=== PATIENT | female | born 1955 | race Caucasian/White ===

== ENCOUNTER 2022-04-30 21:06 | Emergency (ER) | payer MEDICARE, OTHER, SELFPAY ==
[2022-04-30 21:13] VITALS: BP 169/94; PULSE 100; RESP 20; TEMP 36; O2SAT 96; BMI 25.8
[2022-04-30 21:26] VITALS: O2SAT 100
--- NOTE | 2022-04-30 21:29 | ED_ITS ---
HPI - General Adult General Time Seen by Provider: 21:29 <David Mahajan MD - Last Filed: 04/30/22 21:32> Date Seen: 04/30/22 <David Mahajan MD - Last Filed: 04/30/22 21:32> Chief complaint: Unspecified Complaint, Adult <David Mahajan MD - Last Filed: 04/30/22 21:32> Stated complaint: Took Wellbutrin (900 mg) thought it ibuprofen <David Mahajan MD - Last Filed: 04/30/22 21:32> Time Seen by Provider: 04/30/22 21:11 <David Mahajan MD - Last Filed: 04/30/22 21:32> Source: patient <David Mahajan MD - Last Filed: 04/30/22 21:32> Mode of arrival: ambulatory <David Mahajan MD - Last Filed: 04/30/22 21:32> Limitations: no limitations <David Mahajan MD - Last Filed: 04/30/22 21:32> History of Present Illness HPI narrative: Patient is a 67 year white female was on Wellbutrin and accidentally took additional Wellbutrin 900 mg 3 tablets of 300 mg of Wellbutrin. She was she called poison Control and they told her to come to the ER for fear of seizures. The patient has no symptoms at this time she took the medication about accidentally about 8 15 p.m.. Poison Control stated that she we need to what, give activated charcoal, keep on telemetry, check electrolytes, patient is to be watch for about 18 hours. Perhaps even longer depending on symptomology. Activated charcoal now about 1 hour after ingestion. Again she has no symptoms now <David Mahajan MD - Last Filed: 04/30/22 21:32> Related Data Home medications: Home Medications Medication Instructions Recorded Confirmed bupropion HCl 150 mg 24 hr tablet, 150 mg PO DAILY 04/30/22 05/01/22 extended release duloxetine 60 mg capsule,delayed 60 mg PO DAILY 04/30/22 05/01/22 release levothyroxine 50 mcg tablet 50 mcg PO DAILY 04/30/22 05/01/22 lisinopril 10 1 tab PO DAILY 04/30/22 05/01/22 mg-hydrochlorothiazide 12.5 mg tablet lovastatin 20 mg tablet 20 mg PO HS 04/30/22 05/01/22 pantoprazole 20 mg tablet,delayed 20 mg PO DAILY 04/30/22 05/01/22 release <David Mahajan MD - Last Filed: 04/30/22 21:32> Allergies/adverse reactions: Allergies Allergy/AdvReac Type Severity Reaction Status Date / Time gabapentin Allergy Verified 04/30/22 21:11 morphine AdvReac Verified 04/30/22 21:11 <David Mahajan MD - Last Filed: 04/30/22 21:32> Review of Systems Status of ROS: Reports: 6 or more systems reviewed and unremarkable except as noted in History and below <David Mahajan MD - Last Filed: 04/30/22 21:32> [facility] Social History: Social History Smoking Status: Never smoker How often do you have a drink containing alcohol: never AUDIT-C Alcohol total score: 0 Non-prescribed substance use: denies use <David Mahajan MD - Last Filed: 04/30/22 21:32> Exam Narrative: Exam Narrative: Objective: Vital signs unremarkable other than slightly elevated blood pressure Patient is very anxious in feels terribly about the situation HEENT is unremarkable Neck is supple Pulses regular Heart regular Lungs are clear her abdomen is benign extremities good perfusion, moves all extremities Skin warm and dry <David Mahajan MD - Last Filed: 04/30/22 21:32> Const: Vital Signs, click to edit/add: Vital Signs - 24 hr 04/30/22 21:13 04/30/22 21:26 04/30/22 22:18 Temperature 96.8 F L Pulse Rate 83 Pulse Rate [Left P ulse Oximeter] 100 Respiratory Rate 20 Blood Pressure Blood Pressure [Ri ght Upper Arm] 169/94 H Pulse Oximetry 96 100 96 Oxygen Delivery Me thod Room Air 04/30/22 22:33 04/30/22 22:34 05/01/22 00:02 Temperature Pulse Rate 88 86 75 Pulse Rate [Left P ulse Oximeter] Respiratory Rate Blood Pressure 152/89 H 132/64 Blood Pressure [Ri ght Upper Arm] Pulse Oximetry 95 95 95 Oxygen Delivery Me thod 05/01/22 00:32 05/01/22 01:02 05/01/22 01:32 Temperature Pulse Rate 77 72 71 Pulse Rate [Left P ulse Oximeter] Respiratory Rate Blood Pressure 146/74 H 128/66 127/67 Blood Pressure [Ri ght Upper Arm] Pulse Oximetry 95 95 94 Oxygen Delivery Me thod 05/01/22 02:02 05/01/22 02:32 05/01/22 03:02 Temperature Pulse Rate 73 71 78 Pulse Rate [Left P ulse Oximeter] Respiratory Rate Blood Pressure 120/64 119/63 124/68 Blood Pressure [Ri ght Upper Arm] Pulse Oximetry 94 92 92 Oxygen Delivery Me thod 05/01/22 03:32 05/01/22 04:32 05/01/22 05:02 Temperature Pulse Rate 70 72 69 Pulse Rate [Left P ulse Oximeter] Respiratory Rate Blood Pressure 124/64 123/66 127/69 Blood Pressure [Ri ght Upper Arm] Pulse Oximetry 91 93 93 Oxygen Delivery Me thod 05/01/22 05:32 05/01/22 06:02 05/01/22 06:30 Temperature Pulse Rate 70 71 Pulse Rate [Left P ulse Oximeter] Respiratory Rate Blood Pressure 133/73 124/72 Blood Pressure [Ri ght Upper Arm] Pulse Oximetry 92 93 Oxygen Delivery Me thod <David Mahajan MD - Last Filed: 04/30/22 21:32> Vital Signs, click to edit/add: Vital Signs - 24 hr 04/30/22 21:13 04/30/22 21:26 04/30/22 22:18 Temperature 96.8 F L Pulse Rate 83 Pulse Rate [Left P ulse Oximeter] 100 Respiratory Rate 20 Blood Pressure Blood Pressure [Ri ght Upper Arm] 169/94 H Pulse Oximetry 96 100 96 Oxygen Delivery Me thod Room Air 04/30/22 22:33 04/30/22 22:34 05/01/22 00:02 Temperature Pulse Rate 88 86 75 Pulse Rate [Left P ulse Oximeter] Respiratory Rate Blood Pressure 152/89 H 132/64 Blood Pressure [Ri ght Upper Arm] Pulse Oximetry 95 95 95 Oxygen Delivery Me thod 05/01/22 00:32 05/01/22 01:02 05/01/22 01:32 Temperature Pulse Rate 77 72 71 Pulse Rate [Left P ulse Oximeter] Respiratory Rate Blood Pressure 146/74 H 128/66 127/67 Blood Pressure [Ri ght Upper Arm] Pulse Oximetry 95 95 94 Oxygen Delivery Me thod 05/01/22 02:02 05/01/22 02:32 05/01/22 03:02 Temperature Pulse Rate 73 71 78 Pulse Rate [Left P ulse Oximeter] Respiratory Rate Blood Pressure 120/64 119/63 124/68 Blood Pressure [Ri ght Upper Arm] Pulse Oximetry 94 92 92 Oxygen Delivery Me thod 05/01/22 03:32 05/01/22 04:32 05/01/22 05:02 Temperature Pulse Rate 70 72 69 Pulse Rate [Left P ulse Oximeter] Respiratory Rate Blood Pressure 124/64 123/66 127/69 Blood Pressure [Ri ght Upper Arm] Pulse Oximetry 91 93 93 Oxygen Delivery Me thod 05/01/22 05:32 05/01/22 06:02 05/01/22 06:30 Temperature Pulse Rate 70 71 Pulse Rate [Left P ulse Oximeter] Respiratory Rate Blood Pressure 133/73 124/72 Blood Pressure [Ri ght Upper Arm] Pulse Oximetry 92 93 Oxygen Delivery Me thod <Jayy Diaz MD - Last Filed: 05/01/22 11:54> Course Course Hospital Course: I assumed care of this patient from Dr. Mahajan. She did well through the night. Her Wellbutrin ingestion was approximately 8:00 p.m. and poison Control has suggested we observe her for at least 18 hours. Our current plan is to discharge her around 4:00 a.m. this afternoon. The risk is that of seizures and she has shown no worrisome signs. Lorazepam can be used if needed. <David Mahajan MD - Last Filed: 04/30/22 21:32> Vital Signs Vital signs: Initial Vital Signs Temperature 96.8 F L 04/30/22 21:13 Temperature Source Temporal Artery Scan 04/30/22 21:13 Pulse Rate 100 04/30/22 21:13 Pulse Rhythm 04/30/22 21:13 Pulse Strength 3+ Normal 04/30/22 21:13 Respiratory Rate 20 04/30/22 21:13 Blood Pressure 169/94 H 04/30/22 21:13 Blood Pressure Mean 119 04/30/22 21:13 Blood Pressure Position Sitting 04/30/22 21:13 Pulse Oximetry 96 04/30/22 21:13 Oxygen Delivery Method 04/30/22 21:13 Vital Signs Temperature 96.8 F L 04/30/22 21:13 Pulse Rate 100 04/30/22 21:13 Respiratory Rate 20 04/30/22 21:13 Blood Pressure 169/94 H 04/30/22 21:13 Pulse Oximetry 96 04/30/22 21:13 Oxygen Delivery Method 04/30/22 21:13 Temperature 96.8 F L 04/30/22 21:13 Pulse Rate 71 05/01/22 06:30 Respiratory Rate 20 04/30/22 21:13 Blood Pressure 124/72 05/01/22 06:02 Pulse Oximetry 93 05/01/22 06:30 Oxygen Delivery Method 04/30/22 21:13 <David Mahajan MD - Last Filed: 04/30/22 21:32> Initial Vital Signs Temperature 96.8 F L 04/30/22 21:13 Temperature Source Temporal Artery Scan 04/30/22 21:13 Pulse Rate 100 04/30/22 21:13 Pulse Rhythm 04/30/22 21:13 Pulse Strength 3+ Normal 04/30/22 21:13 Respiratory Rate 20 04/30/22 21:13 Blood Pressure 169/94 H 04/30/22 21:13 Blood Pressure Mean 119 04/30/22 21:13 Blood Pressure Position Sitting 04/30/22 21:13 Pulse Oximetry 96 04/30/22 21:13 Oxygen Delivery Method 04/30/22 21:13 Vital Signs Temperature 96.8 F L 04/30/22 21:13 Pulse Rate 100 04/30/22 21:13 Respiratory Rate 20 04/30/22 21:13 Blood Pressure 169/94 H 04/30/22 21:13 Pulse Oximetry 96 04/30/22 21:13 Oxygen Delivery Method 04/30/22 21:13 Temperature 96.8 F L 04/30/22 21:13 Pulse Rate 71 05/01/22 06:30 Respiratory Rate 20 04/30/22 21:13 Blood Pressure 124/72 05/01/22 06:02 Pulse Oximetry 93 05/01/22 06:30 Oxygen Delivery Method 04/30/22 21:13 <Jayy Diaz MD - Last Filed: 05/01/22 11:54> Medical Decision Making MDM Narrative Medical decision making narrative: Poison Control recommend prolonged monitoring the Wellbutrin peaks in about 18 hours. The patient will need to be monitored for at least that long and perhaps even a longer. Watch for seizures, EKG changes, will rehydrate, charcoal orally. Patient will need to be monitored in the ER as there are no hospital beds in the area or our hospital. <David Mahajan MD - Last Filed: 04/30/22 21:32> Poison Control recommend prolonged monitoring the Wellbutrin peaks in about 18 hours. The patient will need to be monitored for at least that long and perhaps even a longer. Watch for seizures, EKG changes, will rehydrate, charcoal orally. Patient will need to be monitored in the ER as there are no hospital beds in the area or our hospital. Poison control contacted us and stated that a 16 hour time frame of observation is sufficient for this patient. She has been observed for these 16 hours and is having no symptoms. In particular there is been no seizure activity. The patient is okay be discharged home and resume current plans. <Jayy Diaz MD - Last Filed: 05/01/22 11:54> Lab Data Labs: Lab Results 04/30/22 04/30/22 04/30/22 Range/Units 21:26 21:26 21:26 WBC 11.18 H (4.50-11.00) K/uL RBC 5.04 (4.00-5.20) m/uL Hgb 14.8 (12.0-16.0) gm/dL Hct 44.2 (33.0-51.0) % MCV 88 (80-100) fL MCH 29 (26-34) pg MCHC 34 (32-36) gm/dL RDW Coeff of [place] 12.8 (11.5-15.5) % Plt Count 340 (140-440) K/uL Neut % (Auto) 50.7 (42.0-72.0) % Lymph % (Auto) 36.9 (20-44) % [place] % (Auto) 6.2 (0.0-11.0) % Eos % (Auto) 5.6 (0.0-7.0) % Baso % (Auto) 0.3 (0.0-3.0) % Neut # (Auto) 5.70 (1.7-7.0) K/uL Lymph # (Auto) 4.10 H (0.90-2.90) K/uL [place] # (Auto) 0.70 (0.00-0.90) K/UL Eos # (Auto) 0.60 H (0.00-0.50) K/uL Baso # (Auto) 0.00 (0.00-0.30) K/uL Abs Immat Gran (auto) 0.00 (0.00-0.30) K/uL Imm/Tot Granulo (auto) 0.3 % INR 0.92 (0.91-1.10) APTT 27 (23-33) Seconds Sodium 140 (135-149) mmol/L Potassium 3.6 (3.6-5.1) mmol/L Chloride 100 (96-114) mmol/L Carbon Dioxide 31 (20-32) mmol/L BUN 19 (7-30) mg/dL Creatinine 0.9 (0.5-1.5) mg/dL Estimated Creat Clear 57.42 Estimated GFR 69 ml/min Glucose 144 H (60-115) mg/dL Calcium 9.2 (8.4-10.6) mg/dL Total Bilirubin 0.4 (0.1-1.5) mg/dL Direct Bilirubin 0.2 (0.0-0.5) mg/dL AST 24 (12-35) U/L ALT 21 (4-35) U/L Alkaline Phosphatase 106 (40-150) U/L Total Protein 7.3 (6.0-8.3) g/dL Albumin 4.5 (3.3-5.0) g/dL SARS-CoV-2 (PCR) (Negative) 04/30/22 Range/Units 21:27 WBC (4.50-11.00) K/uL RBC (4.00-5.20) m/uL Hgb (12.0-16.0) gm/dL Hct (33.0-51.0) % MCV (80-100) fL MCH (26-34) pg MCHC (32-36) gm/dL RDW Coeff of [place] (11.5-15.5) % Plt Count (140-440) K/uL Neut % (Auto) (42.0-72.0) % Lymph % (Auto) (20-44) % [place] % (Auto) (0.0-11.0) % Eos % (Auto) (0.0-7.0) % Baso % (Auto) (0.0-3.0) % Neut # (Auto) (1.7-7.0) K/uL Lymph # (Auto) (0.90-2.90) K/uL [place] # (Auto) (0.00-0.90) K/UL Eos # (Auto) (0.00-0.50) K/uL Baso # (Auto) (0.00-0.30) K/uL Abs Immat Gran (auto) (0.00-0.30) K/uL Imm/Tot Granulo (auto) % INR (0.91-1.10) APTT (23-33) Seconds Sodium (135-149) mmol/L Potassium (3.6-5.1) mmol/L Chloride (96-114) mmol/L Carbon Dioxide (20-32) mmol/L BUN (7-30) mg/dL Creatinine (0.5-1.5) mg/dL Estimated Creat Clear Estimated GFR ml/min Glucose (60-115) mg/dL Calcium (8.4-10.6) mg/dL Total Bilirubin (0.1-1.5) mg/dL Direct Bilirubin (0.0-0.5) mg/dL AST (12-35) U/L ALT (4-35) U/L Alkaline Phosphatase (40-150) U/L Total Protein (6.0-8.3) g/dL Albumin (3.3-5.0) g/dL SARS-CoV-2 (PCR) Negative SARS-CoV-2 (Negative) <David Mahajan MD - Last Filed: 04/30/22 21:32> Lab Results 04/30/22 04/30/22 04/30/22 Range/Units 21:26 21:26 21:26 WBC 11.18 H (4.50-11.00) K/uL RBC 5.04 (4.00-5.20) m/uL Hgb 14.8 (12.0-16.0) gm/dL Hct 44.2 (33.0-51.0) % MCV 88 (80-100) fL MCH 29 (26-34) pg MCHC 34 (32-36) gm/dL RDW Coeff of [place] 12.8 (11.5-15.5) % Plt Count 340 (140-440) K/uL Neut % (Auto) 50.7 (42.0-72.0) % Lymph % (Auto) 36.9 (20-44) % [place] % (Auto) 6.2 (0.0-11.0) % Eos % (Auto) 5.6 (0.0-7.0) % Baso % (Auto) 0.3 (0.0-3.0) % Neut # (Auto) 5.70 (1.7-7.0) K/uL Lymph # (Auto) 4.10 H (0.90-2.90) K/uL [place] # (Auto) 0.70 (0.00-0.90) K/UL Eos # (Auto) 0.60 H (0.00-0.50) K/uL Baso # (Auto) 0.00 (0.00-0.30) K/uL Abs Immat Gran (auto) 0.00 (0.00-0.30) K/uL Imm/Tot Granulo (auto) 0.3 % INR 0.92 (0.91-1.10) APTT 27 (23-33) Seconds Sodium 140 (135-149) mmol/L Potassium 3.6 (3.6-5.1) mmol/L Chloride 100 (96-114) mmol/L Carbon Dioxide 31 (20-32) mmol/L BUN 19 (7-30) mg/dL Creatinine 0.9 (0.5-1.5) mg/dL Estimated Creat Clear 57.42 Estimated GFR 69 ml/min Glucose 144 H (60-115) mg/dL Calcium 9.2 (8.4-10.6) mg/dL Total Bilirubin 0.4 (0.1-1.5) mg/dL Direct Bilirubin 0.2 (0.0-0.5) mg/dL AST 24 (12-35) U/L ALT 21 (4-35) U/L Alkaline Phosphatase 106 (40-150) U/L Total Protein 7.3 (6.0-8.3) g/dL Albumin 4.5 (3.3-5.0) g/dL SARS-CoV-2 (PCR) (Negative) 04/30/22 Range/Units 21:27 WBC (4.50-11.00) K/uL RBC (4.00-5.20) m/uL Hgb (12.0-16.0) gm/dL Hct (33.0-51.0) % MCV (80-100) fL MCH (26-34) pg MCHC (32-36) gm/dL RDW Coeff of [place] (11.5-15.5) % Plt Count (140-440) K/uL Neut % (Auto) (42.0-72.0) % Lymph % (Auto) (20-44) % [place] % (Auto) (0.0-11.0) % Eos % (Auto) (0.0-7.0) % Baso % (Auto) (0.0-3.0) % Neut # (Auto) (1.7-7.0) K/uL Lymph # (Auto) (0.90-2.90) K/uL [place] # (Auto) (0.00-0.90) K/UL Eos # (Auto) (0.00-0.50) K/uL Baso # (Auto) (0.00-0.30) K/uL Abs Immat Gran (auto) (0.00-0.30) K/uL Imm/Tot Granulo (auto) % INR (0.91-1.10) APTT (23-33) Seconds Sodium (135-149) mmol/L Potassium (3.6-5.1) mmol/L Chloride (96-114) mmol/L Carbon Dioxide (20-32) mmol/L BUN (7-30) mg/dL Creatinine (0.5-1.5) mg/dL Estimated Creat Clear Estimated GFR ml/min Glucose (60-115) mg/dL Calcium (8.4-10.6) mg/dL Total Bilirubin (0.1-1.5) mg/dL Direct Bilirubin (0.0-0.5) mg/dL AST (12-35) U/L ALT (4-35) U/L Alkaline Phosphatase (40-150) U/L Total Protein (6.0-8.3) g/dL Albumin (3.3-5.0) g/dL SARS-CoV-2 (PCR) Negative SARS-CoV-2 (Negative) <Jayy Diaz MD - Last Filed: 05/01/22 11:54> Discharge Plan Discharge Clinical Impression: Accidental medication overdose <David Mahajan MD - Last Filed: 04/30/22 21:32> Patient Disposition: Home, Self-Care <David Mahajan MD - Last Filed: 04/30/22 21:32> Condition: Stable <David Mahajan MD - Last Filed: 04/30/22 21:32> Additional Instructions: Continue current plans. Follow up with MD or return if worsening. <David Mahajan MD - Last Filed: 04/30/22 21:32> Prescriptions: No Action pantoprazole 20 mg tablet,delayed release (DR/EC) 20 mg PO DAILY levothyroxine 50 mcg tablet 50 mcg PO DAILY Label Comments: TAKE 1 TABLET BY MOUTH ONCE DAILY. lisinopril-hydrochlorothiazide 10-12.5 mg tablet 1 tab PO DAILY Label Comments: TAKE 1 TABLET BY MOUTH EVERY DAY lovastatin 20 mg tablet 20 mg PO HS Label Comments: TAKE 1 TABLET BY MOUTH AT BEDTIME bupropion HCl 150 mg tablet extended release 24 hr 150 mg PO DAILY duloxetine 60 mg capsule,delayed release(DR/EC) 60 mg PO DAILY <David Mahajan MD - Last Filed: 04/30/22 21:32> Stand Alone Forms: [facility] Info Instructions <David Mahajan MD - Last Filed: 04/30/22 21:32>
[2022-04-30] MEDS: 0.9 % SODIUM CHLORIDE 1000 ml 1,000 ML 6000 ML IV (21:40)
[2022-04-30 22:03] LABS: Basophils Percent Auto 0.3 % (0.0-3.0); Eosinophils Percent Auto 5.6 % (0.0-7.0); Hematocrit 44.2 % (33.0-51.0); Hemoglobin* 14.8 gm/dL (12.0-16.0); Immature Granulocytes Pct Auto 0.3 %; Lymphocytes Percent Auto 36.9 % (20-44); Mean Corpuscular HGB Conc 34 gm/dL (32-36); Mean Corpuscular Hemoglobin 29 pg (26-34); Mean Corpuscular Volume 88 fL (80-100); Monocytes Percent Auto 6.2 % (0.0-11.0); Neutrophils Percent Auto 50.7 % (42.0-72.0); Platelet Count* 340 K/uL (140-440); RDW Coefficient of Variation % 12.8 % (11.5-15.5); Red Blood Count 5.04 m/uL (4.00-5.20); White Blood Count* 11.18 K/uL (4.50-11.00)
[2022-04-30 22:08] LABS: INR 0.92 (0.91-1.10); Prothrombin Time 12.9 Seconds
[2022-04-30 22:09] LABS: Partial Thromboplastin Time* 27 Seconds (23-33)
[2022-04-30 22:18] VITALS: PULSE 83; O2SAT 96
[2022-04-30 22:18] LABS: Slide Review Reflex No
[2022-04-30 22:21] LABS: Albumin* 4.5 g/dL (3.3-5.0); Chloride* 100 mmol/L (96-114)
[2022-04-30 22:22] LABS: Potassium* 3.6 mmol/L (3.6-5.1); Sodium* 140 mmol/L (135-149)
[2022-04-30 22:24] LABS: Bilirubin Direct* 0.2 mg/dL (0.0-0.5); Bilirubin Total* 0.4 mg/dL (0.1-1.5); Carbon Dioxide* 31 mmol/L (20-32); Total Protein* 7.3 g/dL (6.0-8.3)
[2022-04-30 22:25] LABS: Alanine Aminotransferase* 21 U/L (4-35); Alkaline Phosphatase* 106 U/L (40-150); Aspartate Amino Transferase* 24 U/L (12-35); Blood Urea Nitrogen* 19 mg/dL (7-30); Calcium* 9.2 mg/dL (8.4-10.6); Glucose* 144 mg/dL (60-115)
[2022-04-30 22:33] VITALS: PULSE 88; O2SAT 95
[2022-04-30 22:34] VITALS: BP 152/89; PULSE 86; O2SAT 95
[2022-04-30 22:37] LABS: SARS PCR* Negative SARS-CoV-2 (Negative)
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
[2022-04-30 23:57] LABS: Creatinine* 0.9 mg/dL (0.5-1.5); Est. Creatinine Clearance* 57.42; Estimated Glomerular Filt Rate 69 ml/min
[2022-05-01] VITALS (28 sets, daily range): BP systolic 119–146; BP diastolic 62–78; PULSE 62–78; O2SAT 91–96
--- NOTE | 2022-05-01 03:20 | ED.NURSE ---
pt up to bathroom, denies any pain or concerns at this time.
[2022-05-01] MEDS: LEVOTHYROXINE 50 MCG TABLET PO (09:55)
--- NOTE | 2022-05-01 09:55 | ED.NURSE ---
Kaylee from poison control called for update. she said if pt is not having any symptoms would be ok with her dc'ing after 16 hours at noon.
== END 2022-05-01 11:59 | disposition home or self-care (01) ==
PROVIDERS: Family Medicine; Emergency Provider Family Medicine
DX: T43.291A Poisoning by other antidepressants, accidental (unintentional), initial encounter (principal)
CPT/HCPCS: 36415; 80048; 80076; 85025; 85610; 85730; 87635; 93005; 94761; 99283; 99284; 99285; A9270; J7030

== ENCOUNTER 2024-06-19 14:23 | Emergency (ER) | payer MEDICARE, OTHER, SELFPAY ==
[2024-06-19 14:32] VITALS: BP 121/58; PULSE 62; RESP 18; TEMP 36.8; O2SAT 99; BMI 28.9
--- NOTE | 2024-06-19 14:37 | CRLHL7_ITS ---
For Patients: As a result of the Century Cures Act, medical imaging exams and procedure reports are released immediately into your electronic medical record. You may view this report before your referring provider. If you have questions, please contact your health care provider. INDICATION: Leg pain and swelling TECHNIQUE: Ultrasound venous duplex lower left extremity. Compression venous exam was performed using rossi-scale, color Doppler, and spectral Doppler analysis. COMPARISON: None. FINDINGS: Sonographic imaging demonstrates the left common femoral, deep femoral, superficial femoral, popliteal, posterior tibial and greater saphenous and the contralateral right common femoral veins to be fully compressible with normal color Doppler blood flow. IMPRESSION: Normal left lower extremity venous ultrasound, no sign of deep venous thrombosis. Dictated by Jeramy Solis MD @ 06/19/2024 3:27:02 PM (Electronically Signed)
--- NOTE | 2024-06-19 15:22 | ED.GENADULT ---
HPI - General Adult General Date Seen: 06/19/24 Chief complaint: Lower Extremity Swelling Stated complaint: possible blood clot in leg Time Seen by Provider: 06/19/24 14:35 Source: patient History of Present Illness HPI narrative: Patient is a 69-year-old woman here for evaluation of swelling in her left leg. She says her left leg is always a little bit larger than the right, but she has been having some pain in her calf. She was concerned about possible blood clot. There has not been any redness, no shortness of breath or chest pain. She had back surgery 2 months ago and is recovering well from that. She had a clot in her arm she says in 1977 after having some dental work done. Nothing since then. Related Data Home Medications ?Medication ?Instructions ?Recorded ?Confirmed bupropion HCl 150 mg 24 hr tablet, 150 mg PO DAILY 04/30/22 05/01/22 extended release duloxetine 60 mg capsule,delayed 60 mg PO DAILY 04/30/22 05/01/22 release levothyroxine 50 mcg tablet 50 mcg PO DAILY 04/30/22 05/01/22 lisinopril 10 1 tab PO DAILY 04/30/22 05/01/22 mg-hydrochlorothiazide 12.5 mg tablet lovastatin 20 mg tablet 20 mg PO HS 04/30/22 05/01/22 pantoprazole 20 mg tablet,delayed 20 mg PO DAILY 04/30/22 05/01/22 release Allergies Allergy/AdvReac Type Severity Reaction Status Date / Time gabapentin Allergy Verified 06/19/24 14:34 morphine AdvReac Verified 06/19/24 14:34 PFSH PFS Social History Smoking Status: Never smoker Do you use any of these nicotine containing products: None How often do you have a drink containing alcohol: never How often do you have six or more drinks on one occasion: Never AUDIT-C Alcohol total score: 0 Non-prescribed substance use: denies use Exam Narrative: Exam Narrative: Vital signs reviewed In general, alert, nontoxic elderly woman. She is breathing easily. Head: Normocephalic, atraumatic. Eyes: Sclera clear. Pupils equal and reactive. ENT: Mucous membranes moist. Neck: Supple without adenopathy. Heart: Regular rate and rhythm without murmur. Lungs: Clear. No increased work of breathing, crackles or wheezes. Back: Well-healed incision without evidence of infection. Extremities: Well perfused, pulses intact. No significant edema. Slight asymmetry noted between the left and right legs. She has a few small varicosities which are mildly tender, no erythema or induration. Neurologic: Alert, conversant. Speech fluent, face symmetric. Moves all extremities equally. Skin: Warm, dry well perfused. Affect: Normal. Const: Vital Signs, click to edit/add: Vital Signs - 24 hr 06/19/24 14:32 Temperature 98.2 F Pulse Rate [Right Pulse Oximeter] 62 Respiratory Rate 18 Blood Pressure [Ri ght Upper Arm] 121/58 L Pulse Oximetry 99 Oxygen Delivery Me thod Room Air Documenting provider has reviewed patient's vital signs: yes Course Course ED Course: Lower extremity Doppler done here is preliminarily read as negative. No concerning findings on exam. No explanation on ultrasound for calf pain. Final read likewise negative. Patient is very relieved to hear this. Symptoms may be related to her varicose veins, muscular, I do not see anything to suggest infection or muscular tear. Recommend treatment with ice, Tylenol, elevation, compression stockings. See primary care if not improving, return at any time for significant worsening. Vital Signs Vital signs: Initial Vital Signs Temperature 98.2 F 06/19/24 14:32 Temperature Source Temporal Artery Scan 06/19/24 14:32 Pulse Rate 62 06/19/24 14:32 Pulse Rhythm Regular 06/19/24 14:32 Pulse Strength 3+ Normal 06/19/24 14:32 Respiratory Rate 18 06/19/24 14:32 Blood Pressure 121/58 L 06/19/24 14:32 Blood Pressure Mean 79 06/19/24 14:32 Blood Pressure Position Sitting 06/19/24 14:32 Pulse Oximetry 99 06/19/24 14:32 Oxygen Delivery Method Room Air 06/19/24 14:32 Vital Signs Temperature 98.2 F 06/19/24 14:32 Pulse Rate 62 06/19/24 14:32 Respiratory Rate 18 06/19/24 14:32 Blood Pressure 121/58 L 06/19/24 14:32 Pulse Oximetry 99 06/19/24 14:32 Oxygen Delivery Method Room Air 06/19/24 14:32 Temperature 98.2 F 06/19/24 14:32 Pulse Rate 62 06/19/24 14:32 Respiratory Rate 18 06/19/24 14:32 Blood Pressure 121/58 L 06/19/24 14:32 Pulse Oximetry 99 06/19/24 14:32 Oxygen Delivery Method Room Air 06/19/24 14:32 Medical Decision Making Imaging Data Venous US: Attestation: I have reviewed the pertinent imaging results. Radiologist's impression: Patient: Tressa Huertas MR#: [id number] : 1955 Acct:[id number] Loc: ED Service Date: 06/19/[address]: Ordering Physician: Kathryn Sams M.D. Date of Service: 06/19/24 Procedure(s): US venous LE LT Accession Number(s): [id number] cc: Kathryn Sams M.D.; Ariel Stearns M.D.~ For Patients: As a result of the Cures Act, medical imaging exams and procedure reports are released immediately into your electronic medical record. You may view this report before your referring provider. If you have questions, please contact your health care provider. INDICATION: Leg pain and swelling TECHNIQUE: Ultrasound venous duplex lower left extremity. Compression venous exam was performed using rossi-scale, color Doppler, and spectral Doppler analysis. COMPARISON: None. FINDINGS: Sonographic imaging demonstrates the left common femoral, deep femoral, superficial femoral, popliteal, posterior tibial and greater saphenous and the contralateral right common femoral veins to be fully compressible with normal color Doppler blood flow. IMPRESSION: Normal left lower extremity venous ultrasound, no sign of deep venous thrombosis. Dictated by Jeramy Solis MD @ 06/19/2024 3:27:02 PM Discharge Plan Discharge Clinical Impression: Pain of left calf Patient Disposition: Home, Self-Care Instructions: Leg Pain (ED) Additional Instructions: Your ultrasound does not show any evidence of blood clot in your leg. You do have some varicose veins and those may be causing some discomfort. For now, would recommend use of Tylenol, elevate your legs as able. For worsening or new symptoms, return any time to the emergency department. Otherwise, see your primary doctor for persisting concerns. Prescriptions: No Action pantoprazole 20 mg tablet,delayed release (DR/EC) 20 mg PO DAILY levothyroxine 50 mcg tablet 50 mcg PO DAILY Patient Comments: TAKE 1 TABLET BY MOUTH ONCE DAILY. lisinopril-hydrochlorothiazide 10-12.5 mg tablet 1 tab PO DAILY Patient Comments: TAKE 1 TABLET BY MOUTH EVERY DAY lovastatin 20 mg tablet 20 mg PO HS Patient Comments: TAKE 1 TABLET BY MOUTH AT BEDTIME bupropion HCl 150 mg tablet extended release 24 hr 150 mg PO DAILY duloxetine 60 mg capsule,delayed release(DR/EC) 60 mg PO DAILY Follow Up/Referrals: Provider,Not a Local [Non-Staff] - Stand Alone Forms: [employer] Info Instructions
--- OUTSIDE RECORDS SUMMARY | 2024-06-19 23:30 | XMS_ITS | Clinical Summary ---
Author Organization [employer] [facility] Address [place], [place] [address] Care Team Providers Care Retail Security Professional Name Role Phone Ariel Stearns MD Primary Care Provider [phone] Allergies Active Allergy Reactions Criticality Noted Date Comments Atorvastatin Arthralgia 02/20/2020 Gabapentin 12/04/2010 neurontin Severe depression, fearful, crying alot Morphine Hallucinations 08/05/2010 Also ineffective for pain management. Hydrocodone-Acetaminophe n Sedation 06/11/2017 Slept for 12 hours. Medications lisinopril-hydroc hlorothiazide (10-12.5 mg) tablet (PRINZIDE; ZESTORETIC)Indica tions:Primary hypertension Take 1 Tablet by mouth once daily. 90 Tablet 4 024 Active levothyroxine (SYNTHROID) 50 mcg tabletIndications :Acquired hypothyroidism Take 1 Tablet (50 mcg) by mouth once daily. 90 Tablet 4 024 Active acetaminophen (TYLENOL EXTRA STRGTH) 500 mg tablet Take 500 mg by mouth every 6 hours if needed. Max acetaminophen dose: 4000mg in 24 hrs. Active DULoxetine (CYMBALTA) 60 mg Delayed-release capsuleIndication s:Dysthymia,React brayan depression (situational) Take 1 Capsule (60 mg) by mouth once daily. 90 Capsule 1 024 Active lovastatin (MEVACOR) 20 mg tabletIndications :Dyslipidemia TAKE 1 TABLET BY MOUTH AT BEDTIME 90 Tablet 3 024 Active busPIRone (BUSPAR) 5 mg tabletIndications :RAFIQ (generalized anxiety disorder) Take 2 Tablets (10 mg) by mouth two times daily. 024 Active fluticasone (50 mcg per actuation) nasal solution (FLONASE)Indicati ons:Chronic rhinitis Inhale 1 [place] into affected nostril(s) once daily if needed for Rhinitis. 16 g 11 024 Active pantoprazole (PROTONIX) 20 mg tabletIndications :Gastroesophageal reflux disease without esophagitis TAKE 1 TABLET BY MOUTH EVERY DAY 90 Tablet 3 024 Active pantoprazole (PROTONIX) 20 mg tabletIndications :Gastroesophageal reflux disease without esophagitis TAKE 1 TABLET BY MOUTH EVERY DAY 90 Tablet 3 023 2023 Discontinued doxycycline 100 mg tabletIndications :Sinusitis, unspecified chronicity, unspecified location Take 1 Tablet (100 mg) by mouth two times daily for 10 days. 20 Tablet 025 2024 Active Problems Problem Noted Date Diagnosed Date Synovial cyst of lumbar facet joint 04/21/2024 Lumbar herniated disc 04/21/2024 Primary hypertension 04/13/2024 Hypercholesterolemia 08/30/2023 Prediabetes 08/30/2023 Moderate recurrent major depression 07/15/2023 RAFIQ (generalized anxiety disorder) 07/15/2023 Chronic rhinitis 07/15/2023 Scapholunate instability, right 07/15/2023 Lumbar radiculopathy 07/15/2023 Spinal stenosis of lumbosacral region 07/15/2023 Overview (07/15/2023): T12 intra dural lesion. Removed in 2011. Since then has had a neuropathic pain going down her right leg. Worse at night. PT/chiro tx help temporarily. Gabapentin: increased depression Cymbalta: 30 mg didn't help Nortriptyline not tried yet. Has seen Noran. Chronic GERD 07/15/2023 Colon polyp 02/11/2023 Overview (02/11/2023): Colonoscopy 01/2023 TA, SSA, repeat in 5 years Enteritis 02/06/2023 Irritable bowel syndrome wit h both constipation and diarrhea 04/09/2022 Spinal cord cysts 04/09/2022 Overactive bladder, suspected 11/15/2014 Attention deficit disorder without mention of hy peractivity 09/21/2013 Overview (10/10/2013): August 2013: See consult from Dr. Yu, consider stimulant? Rectocele 03/26/2013 Overview (03/26/2013): Feb 2013: Saw Deputy Brand Inspector. Rosacea 11/30/2011 Vitamin D deficiency 08/06/2011 Acquired hypothyroidism 02/27/2009 Anxiety disorder 02/27/2009 Overview (04/23/2012): ~ on Citalopram. ~ started buspar July 2009. ~ Patient stopped wellbutrin on her own Mar 2012. Need to discuss at follow up. Contact dermatitis and other eczema, due to unspecified cause 03/31/2004 Resolved Problems Problem Noted Date Diagnosed Date Resolved Date Hypertension 08/30/2023 04/13/2024 Gastrointestinal dysfunction 02/06/2023 07/15/2023 Elevated blood sugar 10/09/2017 021 Overview (10/09/2017): HgbA1c normal 04/16 at 5.6 Hyperopia of both eyes with astigmatism and presbyopia 04/12/2017 07/15/2023 Postoperative MRSA infection of lower abdominal wound 02/10/2015 07/15/2023 Insomnia 01/05/2015 04/09/2022 Acute abdominal pain in left upper quadrant 11/15/2014 04/09/2022 Colon cancer screening 05/24/201404/09 Overview (05/24/2014): April 2014: diverticulitis, negative otherwise, repeat 10 years. Radiculopathy of leg 03/22/2014 022 Overview (04/24/2014): Mar 2014: Saw. DR. Almeida, Neurology consult. Trochanteric bursitis 03/22/20142021 Lumbago 03/22/2014 04/09/2022 Adhesive capsulitis of shoulder 03/14/2014 04/09/2022 Overview (05/08/2014): Feb 2014: interarticular injection under ultrasound guidance. April 2014: interarticular injection under ultrasound guidance. Elevated liver enzymes 11/22/201304/09 Overview (11/22/2013): October 2013: ALT 73. Diverticulitis 03/03/2013 04/09/2022 Overview (02/13/2014): Feb 2013: Sigmoid on CT Scan. Jan 2014: CT Scan shows pancolonic diverticula and distal colon diverticulitis. Varicose vein of leg 12/01/2011 022 Overview (12/01/2011): Left lower leg, with some asymmetric swelling of the Left lower leg, ultrasound negative for DVT November 2011. Adjustment disorder with mix ed anxiety and depressed mood-recent spousal separation 10/29/2010 07/15/2023 Back pain with radiation 08/05/2010 Elevated fasting glucose 08/11/200902/2022 Overview (11/22/2013): Glucoses: 02/27/09 = 115, 07/2009 = 112. referral made to Pre diabetes class August 2009. October 2013: 108. Enthesopathy of ankle and tarsus, unspecified 04/12/20 07 04/09/2022 Lesion of plantar nerve 04/12/200703/31 Other and unspecified hyperlipidemia 10/14/2005 04/09/2022 Overview (11/22/2013): lipitor since 2005, Joint pain greatly improved 2012 with holding lipitor. Feb 2013: start pravastatin 20mg. off statin LDL was 167. SINUSITIS - CHRONIC 05/11/2005 10/15/19 06 UPPER RESPIRATORY INFECTION - ACUTE 03/31/2005 10/14/2005 TENNIS ELBOW 06/20/2004 04/09/2022 Obesity 10/09/2003 04/09/2022 ARTHRALGIA - UNSPECIFIED SITE 10/09/2003 10/23/2003 Recurrent major depressive d isorder, in partial remission 08/29/1999 07/15/2023 Overview (12/09/2012): Symptoms for many years, probably in 20's or high school. Medication back in ?1999?. On citalopram, added Buspar 09/07 but Patient never took. Jan 2011: continue citalopram, and added Wellbutrin SR but never took. November 2011 added wellbutrin and continue zoloft. November 2012: Taper off zoloft and start lexapro. HYPERTENSION, ESSENTIAL NOS 04/09/2022 Overview (12/04/2010): July: lisinopril decreased from 20mg down to 10mg due to dizziness. HYPERCHOLESTEROLEMIA, PURE 0 09/02/2005 Irritable bowel syndrome 02/2022 GERD 07/15/2023 Polyp, intestinal 07/15/2023 Overview (12/08/2012): Removed 1988 Encounters Date Type Department Care Team Description 06/19/2024 1:40 PM RECORD LABEL INTERN Office Visit [facility] [address] [place] [address] Connie Fletcher MD Leg Swelling (Left lower leg swelling, pain, redness and warm to the touch x 1 week ) 06/19/2024 Travel 06/08/2024 8:20 AM RECORD LABEL INTERN Office Visit [facility] [address] [place] [address] Ariel Stearns MD Sinus Problem (x1 month) 06/08/2024 Travel 06/06/2024 Telephone [facility] [address] [phone] Zeynep Munson NP 06/02/2024 1:15 PM RECORD LABEL INTERN Orders Only [facility] [address] [place] [address] Lab, [facility] 06/02/2024 Travel 05/26/2024 Telephone [facility] [address] [facility] [address] [place] [address] Zeynep Munson NP Follow Up 05/22/2024 Telephone [facility] [address] [place] [phone] Zeynep Munson NP 05/20/2024 Refill [facility] [address] [place] [address] Ariel Stearns MD Refill Request (Pantoprazole) 05/19/2024 2:30 PM RECORD LABEL INTERN Orders Only [facility] [address] [place] [address] Lab, [facility] 05/19/2024 12:00 PM RECORD LABEL INTERN Office Visit [facility] [address] [place] [phone] Zeynep Munson NP Post-op (Right L2-3 microdiscectomy; Left L4-5 synovial cyst resection) 05/19/2024 Travel 05/09/2024 10:00 AM RECORD LABEL INTERN Office Visit [facility] [address] [place] [address] Ariel Stearns MD [facility] F/U (Patient stated she has a staph infection ) 05/09/2024 Telephone [facility] [address] [place] [phone] Zeynep Munson NP Wound Check 05/09/2024 Travel 05/08/2024 Telephone [facility] [address] [place] [address] Ariel Stearns MD Surgical Followup 05/05/2024 7:40 AM RECORD LABEL INTERN Office Visit [facility] [address] [place] [address] Ariel Stearns MD Follow Up 05/05/2024 Travel 04/25/2024 9:00 AM RECORD LABEL INTERN Office Visit [facility] [address] [place] [address] Ariel Stearns MD Hospital F/U (Surgery) 04/25/2024 Travel 04/24/2024 Telephone [facility] [address] [place] [phone] Jordin Paredes MD Concerns 04/24/2024 Patient Outreach [facility] [address] [place] [address] Leigh Jean, WILSON Primary RN Care Management; Hospital F/U (Lumbar herniated disc, DOD: 04/22/24, LACE+: 26) 04/21/2024 7:28 AM RECORD LABEL INTERN Anesthesia Event [facility] [address] [place] [address] Obie Carrasco MD Miranda, Lori L, ROCIO 04/21/2024 7:15 AM RECORD LABEL INTERN - 04/21/2024 10:53 AM RECORD LABEL INTERN Surgery [facility] [address] [place] [address] Jordin Paredes MD Right L2-3 microdiscectomy; Left L4-5 synovial cyst resection 04/21/2024 5:14 AM RECORD LABEL INTERN - 04/22/2024 4:18 PM RECORD LABEL INTERN Hospital Encounter [facility] [address] [place] [address] Jordin Paredes MD Lumbar herniated disc (Primary Dx); Gastroesophageal reflux disease without esophagitis Discharge Disposition: Home Self Care 2024 Travel 04/13/2024 2:20 PM RECORD LABEL INTERN [facility] [address] [facility] [place] [address] Ariel Stearns MD Preoperative Exam (DOS 04/21/24) 04/13/2024 Travel 04/12/2024 Telephone [facility] [address] [place] [phone] Jordin Paredes MD Medication Management 04/06/2024 10:00 AM RECORD LABEL INTERN Office Visit [facility] [address] [place] [phone] Jordin Paredes MD Follow Up (Clinic Appt Recurrent LB, buttock, & RLE pain. 09/01/23 L4-5 HLSC sgy cxl'd due to pt's Sx resolved. 03/30/24, 08/05/23, 11/30/22, 03/21/18, 03/09/16, 03/24/14, 10/30/10, 08/28/10, 08/06/10, 07/31/10 [facility] MRIs.) 03/31/2024 Refill [facility] [address] [place] [address] Ariel Stearns MD Refill Request (Lovastatin) 03/30/2024 7:30 AM CDT Ancillary Procedure [facility] [address] [place] [address] 03/30/2024 Travel 03/21/2024 1:20 PM CDT Office Visit [facility] [address] [place] [address] Ariel Stearns MD Back Pain 03/21/2024 Travel from Last 3 Months Immunizations Name Administration Dates Next Due COVID-19 vaccine ([employer] 30mcg/0.3mL) PF, MDV 08/27/2020,08/06/2020 Influenza, IIV3 (Age >=3 years) 04/11/20 10,02/27/2009,03/21/2008,2006,07/15/2006,05/14/2005,03/28/2003 Influenza, IIV4 02/08/2018,05/04/2017,06/03/2016 Influenza, Inactivated AIIV4 (Age 65+ Years) Preserv Free 04/09/2022,03/21/2021,02/20/2020 Pneumococcal Conj 20-valent (Prevnar 20) 04/09/2022 Pneumococcal Poly,23-Valent (Pneumovax) 02/20/2020 Td (Age >=7 Years) 03/23/2000 Tdap 01/20/2010 Tuberculin (PPD) 01/10/2008 Zoster (Shingrix-RZV, recombinant) 02/24/2023, Zoster (Zostavax-ZVL, live) 01/09/2014 Family History Medical History Relation Name Comments Heart Disease Father Hyperlipidemia Father Hypertension Father Other Father Diverticulitis Cancer Maternal Grandmother Leukemi a Cancer Mother Uterus Hypertension Mother Stroke Mother Cancer-breast Other 3-4 cousins Diabetes Paternal Grandfather Heart attack Paternal Grandmother Hyperlipidemia Sister Hypertension Sister Other Sister Back issues Relation Name Status Comments Father Maternal Grandfather Maternal Grandmother Mother Other Paternal Grandfather Paternal Grandmother Sister Alive Social History Tobacco Use Types Packs/Day Years Used Date Smoking Tobacco: Never Passive Smoke Exposure: Never Smokeless Tobacco: Never Tobacco Cessation:Counseling Given: Not Answered Alcohol Use Standard Drinks/Week Comments No 0 (1 standard drink = 0.6 oz pur e alcohol) PHQ-2 Answer Date Recorded PHQ-2 TOTAL SCORE 2 12/27/2023 Social Connections Answer Date Recorded Do you often feel lonely or isolated from those around you? 0 04/21/2024 Alcohol Use Answer Date Recorded How often do you have a drink containing alcohol ? 0 11/25/2021 Average Number of Drinks Not on file 022 Frequency of Binge Drinking Not on file 10/30 Financial Resource Strain Answer Date R ecorded Difficulty of Paying Living Expenses 3 04/21/2024 Difficulty of Paying Living Expenses Not on file 04/21/2024 Food Insecurity Answer Date Recorded Do you worry your food will run out before you are able to buy more? 1 04/21/2024 Transportation Needs Answer Date Record ed Does lack of transportation keep you from medica l appointments? 1 04/21/2024 Does lack of transportation keep you from work, meetings or getting things that you need? 1 04/21/2024 Housing Stability Answer Date Recorded What is your housing situation today? 1 04/21/2024 Interpersonal Safety Answer Date Record ed Are you being hit, kicked, p ushed or yelled at (see row info)? No 04/21/2024 Interpersonal Safety Abuse 12 - 18 Not on file 04/21/2024 Interpersonal Safety Ambulatory Vulnerability No t on file 04/21/2024 Utilities Answer Date Recorded Do you have trouble paying f or utilities (for example, heat, electricity, water, phone)? 1 04/21/2024 Comments No Sex and Gender Information Value Date Recorded Sex Assigned at Not on file Legal Sex Female 5:25 AM RECORD LABEL INTERN Gender Identity Not on file Sexual Orientation Not on file Obstetrics History Last Filed Vital Signs Vital Sign Reading Time Taken Comments Blood Pressure 116/72 06/19/2024 1:48 PM RECORD LABEL INTERN Pulse 88 06/19/2024 1:48 PM RECORD LABEL INTERN Temperature 36.3 C (97.4 F) 06/08/2024 8:29 AM RECORD LABEL INTERN Respiratory Rate 16 05/19/2024 11:55 AM RECORD LABEL INTERN Oxygen Saturation 97% 06/19/2024 1:48 PM RECORD LABEL INTERN Inhaled Oxygen Concentration - - Weight 90.9 kg (200 lb 6.4 oz) 06/19/2024 1:48 P M RECORD LABEL INTERN Height 175.3 cm (5' 9.02) 05/05/2024 7:42 AM CS T Body Mass Index 29.58 05/05/2024 7:42 AM RECORD LABEL INTERN Plan of Treatment Upcoming Encounters Date Type Department Care Team (Late st Contact Info) Description 06/21/2024 9:45 AM RECORD LABEL INTERN Ancillary Procedure [facility] [address] [place] [address] 06/30/2024 7:00 AM RECORD LABEL INTERN Phone Office Visit [facility] [address] [place] [address] Rebeca Okeefe, SHIVA [address] [place] [address] Health Maintenance Due Date Last Done Comments RSV vaccine for adults or (1 - Risk 60-74 years 1-dose series) 2013 Tetanus booster 01/21/2020 01/20/2010, 03/23/2000 COVID-19 vaccine series ( season) 2024 08/27/2020, 08/06/2020 Influenza for age 65+ 01/30/2024 04/09/2022 , 03/21/2021, 02/20/2020, Additional history exists Medicare Wellness for age 65+ 07/15/2024, 04/09/2022, 03/21/2021, Additional history exists Depression screening for age 12+ 12/29/2024 12/30/2023, 12/28/2023, 12/28/2023, Additional history exists BMI (ht and wt on same day) for age 18+ 05/05/2025 05/05/2024, 04/25/2024, 04/13/2024, Additional history exists Mammogram for age 45-75 07/14/2025 07/14/19 24, 11/25/2020, 11/18/2020, Additional history exists Lipids for age 45-75 12/09/2025 12/09/2020, 11/11/2020, 02/20/2020, Additional history exists Colonoscopy through age 75 02/11/202802/10, 02/10/2023, 02/10/2023, Additional history exists Tdap Completed 01/20/2010 Hepatitis C screening for ag e 18-79 Completed 02/20/2020 DEXA/DXA scan for age 65+ Completed 11/18/2020 Pneumococcal series for age 50+ Completed , 02/20/2020 Zoster (shingles) series for age 50+ Completed 02/24/2023, 07/13/2022, 01/09/2014 Medical Devices Implanted Type Area Aerial Photogrammetrist Device Identifier Shelf Expiration Date Model / Serial / Lot Cortical Screw,2.3mm X 14mm,Titanium - [id number] Implanted:Qty: 1 on 05/26/2007 at [facility] Left: Foot [employer] [id number] 4# / / LOAD #3 360 3 26DEC 07 Description:2.3MM X 14MM #AR [id number] FULL THREAD SCREWARTHREX LOW PRFILE PLATE & SCREW SYSTEM Explanted Type Area Aerial Photogrammetrist Device Identifier Shelf Expiration Date Model / Serial / Lot Cath Uret [employer] Fiberoptic - [id number] Implanted:Qty: 1 Explanted:Qty: 1 on 01/23/2015 by Lavon Junior MD at [facility] Bilateral: [facility] 03/30/2016 [id number]# / / PSTR [id number] Procedures Procedure Name Priority Date/Time Associated Diagnosis Comments C-REACTIVE PROTEIN Routine 06/08/2024 9: 01 AM RECORD LABEL INTERN CRP elevated CBC WITH AUTO DIFFERENTIAL Routine 06/08/2024 9:01 AM RECORD LABEL INTERN CRP elevated C-REACTIVE PROTEIN Routine 06/02/2024 1: 17 PM RECORD LABEL INTERN Draining postoperative wound, subsequent encounter WHITE BLOOD COUNT Routine 06/02/2024 1:1 7 PM RECORD LABEL INTERN Draining postoperative wound, subsequent encounter C-REACTIVE PROTEIN Routine 05/19/2024 2: 33 PM RECORD LABEL INTERN Draining postoperative wound, subsequent encounter CBC W PLT NO DIFF Routine 05/19/2024 2:3 3 PM RECORD LABEL INTERN Draining postoperative wound, subsequent encounter CBC WITH AUTO DIFFERENTIAL Routine 05/09/2024 10:23 AM RECORD LABEL INTERN Wound dehiscence C-REACTIVE PROTEIN Routine 05/09/2024 10:23 AM RECORD LABEL INTERN Wound dehiscence AEROBIC BACTERIAL CULTURE, STAIN Routine 05/05/2024 8:22 AM RECORD LABEL INTERN Wound dehiscence XR SPINE 1 VIEW PORTABLE Routine 04/21/2024 9:12 AM RECORD LABEL INTERN XR SPINE 1 VIEW PORTABLE Routine 04/21/2024 8:17 AM RECORD LABEL INTERN ENDOTRACHEAL TUBE Routine 04/21/2024 8:0 7 AM RECORD LABEL INTERN ENDOTRACHEAL TUBE Routine 04/21/2024 8:0 7 AM RECORD LABEL INTERN XR SPINE 1 VIEW PORTABLE Routine 04/21/2024 8:01 AM RECORD LABEL INTERN LAMINECTOMY MICRODISCECTOMY LEVEL 02 Class E Urgent 04/21/2024 7:14 AM RECORD LABEL INTERN Lumbar herniated disc Synovial cyst of lumbar facet joint Case Notes [facility] Min, microscope, prone on Kambin Frame CBC WITH AUTO DIFFERENTIAL Routine 04/13/2024 3:03 PM RECORD LABEL INTERN Pre-op exam BASIC METABOLIC PANEL Routine 04/13/2024 3:03 PM RECORD LABEL INTERN Pre-op exam MR SPINE LUMBAR WO Routine 03/30/2024 8: 11 AM CDT Spinal stenosis of lumbosacral region Lumbar radiculopathy Spinal cord cysts XR MAMMO BILAT SCREENING Routine 07/14/2023 10:13 AM RECORD LABEL INTERN Visit for screening mammogram COLONOSCOPY 02/10/2023 10:35 AM CDT Incontinence of feces, unspecified fecal incontinence type Diarrhea, unspecified type Diverticulosis of large intestine without hemorrhage Polyp of colon, unspecified part of colon, unspecified type LIPID PANEL Routine 12/09/2020 12:14 PM CDT Dyslipidemia XR DXA BONE DENSITY 2 SITES AXIAL Routine 11/18/2020 2:44 PM CDT Menopause ANTI HCV Routine 02/20/2020 10:02 AM CDT Need for hepatitis C screening test from Last 3 Months or Most Recently Relevant to Health Maintenance Results * (ABNORMAL) C-REACTIVE PROTEIN (06/08/2024 9:01 AM RECORD LABEL INTERN) Only the most recent of4 resultswithin the time period is included. C-REACTIVE PROTEIN 15.2(H) <8.0 mg/L [facility] Blood BLOOD SPECIMEN / Unknown 06/08/2024 9:01 AM RECORD LABEL INTERN 06/08/2024 9:02 AM RECORD LABEL INTERN Narrative [facility] - 06/09/2024 1:41 PM RECORD LABEL INTERN FASTING:YES FASTING: YES Ariel Stearns MD CHEMISTRY Final Result [facility] [address] [place] [address], [facility] [address] [place] [address] * CBC AND DIFFERENTIAL (06/08/2024 9:01 AM RECORD LABEL INTERN) Only the most recent of3 resultswithin the time period is included. WHITE BLOOD CELL COUNT 9.0 3.8 - 10.8 Thousand/u L [facility] RED BLOOD CELL COUNT 5.01 3.80 - 5.10 Million/uL [facility] HEMOGLOBIN 14.6 11.7 - 15.5 g/dL [facility] HEMATOCRIT 43.9 35.0 - 45.0 % [facility] MCV 87.6 80.0 - 100.0 fL [facility] MCH 29.1 27.0 - 33.0 pg [facility] MCHC 33.3 32.0 - 36.0 g/dL [facility] Comment: For adults, a slight decrease in the calculated MCHC value (in the range of 30 to 32 g/dL) is most likely not clinically significant; however, it should be interpreted with caution in correlation with other red cell parameters and the patient's clinical condition. RDW 13.0 11.0 - 15.0 % [facility] PLATELET COUNT 373 140 - 400 Thousand/u L [facility] MPV 10.8 7.5 - 12.5 fL [facility] ABSOLUTE NEUTROPHILS 5,616 1,500 - 7,800 cells/uL [facility] ABSOLUTE LYMPHOCYTES 2,556 850 - 3,900 cells/uL [facility] ABSOLUTE MONOCYTES 513 200 - 950 cells/uL [facility] ABSOLUTE EOSINOPHILS 261 15 - 500 cells/uL [facility] ABSOLUTE BASOPHILS 54 0 - 200 cells/uL [facility] NEUTROPHILS 62.4 % [facility] LYMPHOCYTES 28.4 % [facility] MONOCYTES 5.7 % [facility] EOSINOPHILS 2.9 % [facility] BASOPHILS 0.6 % [facility] Blood BLOOD SPECIMEN / Unknown 06/08/2024 9:01 AM RECORD LABEL INTERN 06/08/2024 9:02 AM RECORD LABEL INTERN Narrative [facility] - 06/09/2024 2:48 AM RECORD LABEL INTERN FASTING:YES FASTING: YES us Ariel Stearns MD HEMATOLOGY Final Result Performing Organization Address City/[facility]/ZIP Co de Phone Number [facility] [address] [place] [address], [facility] [address] [place] [address] * WHITE BLOOD COUNT (06/02/2024 1:17 PM RECORD LABEL INTERN) Pathologist [facility] WHITE BLOOD CELL COUNT 9.5 3.8 - 10.8 Thousand/u L [facility] Blood BLOOD SPECIMEN / Unknown 06/02/2024 1:17 PM RECORD LABEL INTERN 06/02/2024 1:17 PM RECORD LABEL INTERN Zeynep Munson NP HEMATOLOGY Final Result Performing Organization Address City/[facility] Co de Phone Number [facility] [address] [address], [facility] [address] [place] [phone] * CBC W PLT NO DIFF (05/19/2024 2:33 PM RECORD LABEL INTERN) Pathologist [facility] WHITE BLOOD CELL COUNT 10.0 3.8 - 10.8 Thousand/u L [facility] RED BLOOD CELL COUNT 4.81 3.80 - 5.10 Million/uL [facility] HEMOGLOBIN 14.4 11.7 - 15.5 g/dL [facility] HEMATOCRIT 42.0 35.0 - 45.0 % [facility] MCV 87.3 80.0 - 100.0 fL [facility] MCH 29.9 27.0 - 33.0 pg [facility] MCHC 34.3 32.0 - 36.0 g/dL [facility] Comment: For adults, a slight decrease in the calculated MCHC value (in the range of 30 to 32 g/dL) is most likely not clinically significant; however, it should be interpreted with caution in correlation with other red cell parameters and the patient's clinical condition. RDW 13.0 11.0 - 15.0 % [facility] tiffanie Richey PLATELET COUNT 392 140 - 400 Thousand/u L [facility] MPV 10.4 7.5 - 12.5 fL [facility] tiffanie Richey Blood BLOOD SPECIMEN / Unknown 05/19/2024 2:33 PM RECORD LABEL INTERN 05/19/2024 2:34 PM RECORD LABEL INTERN Zeynep Munson NP HEMATOLOGY Final Result [facility] [address] [place] [address], [facility] [address] [place] [address] * (ABNORMAL) AEROBIC BACTERIAL CULTURE, STAIN (05/05/2024 8:22 AM RECORD LABEL INTERN) CULTURE RESULT(A) 05/07/2024 8:44 AM RECORD LABEL INTERN [facility] CULTURE 4+ Staphylococcus aureus 05/07/2024 8:44 AM RECORD LABEL INTERN [facility] GRAM STAIN No Epithelial cells 05/07/2024 8:44 AM RECORD LABEL INTERN [facility] GRAM STAIN No RBCs 05/07/2024 8:44 AM RECORD LABEL INTERN [facility] GRAM STAIN No PMNs 05/07/2024 8:44 AM RECORD LABEL INTERN [facility] GRAM STAIN 1+ Gram Positive Cocci 05/07/2024 8:44 AM RECORD LABEL INTERN [facility] Other (Other) Non-Blood / Unknown 05/05/2024 8:22 AM RECORD LABEL INTERN 05/05/2024 8:22 AM RECORD LABEL INTERN Narrative Organism Antibiotic Method Susceptibility Staphylococcus aureus OXACILLIN 0.5: S Comment:Oxacillin [place]ona sceptible should not be interpreted as penicillin or amoxicillin susceptible. Staphylococcus aureus CLINDAMYCIN 0.25: S Staphylococcus aureus DOXYCYCLINE <=0.5: S Staphylococcus aureus CEFAZOLIN S Staphylococcus aureus TRIMETHOPRIM/SULF <=0.5/9.5: S us Ariel Stearns MD MICROBIOLOGY Final Result [facility] [address] [place] [id number], [place] * XR SPINE 1 VIEW PORTABLE (04/21/2024 9:12 AM RECORD LABEL INTERN) Only the most recent of3 resultswithin the time period is included. Anatomical Region Laterality Modality Spine, CERVICAL SPINE, THORACIC SPINE, LUMBAR SP INE Digital Radiography Narrative 04/21/2024 8:57 AM RECORD LABEL INTERN No radiology involvement necessary. See chart for further information. Jordin Paredes MD GENERAL IMAGING Final R esult * HCHG TUBE PR1, HCHG STYLET PR1 (04/21/2024 8:07 AM RECORD LABEL INTERN) Narrative Radha Perrin CRNA - 04/21/2024 8:07 AM RECORD LABEL INTERN Radha Perrin CRNA 04/21/2024 8:09 AM Procedure: ETT Patient location during procedure: OR ETT Properties Mask Ventilation: easy Final Technique: direct laryngoscopy Type: straight Location: oral Cuffed: yes Tube Size: 7.0 mm Stylet: yes Laryngoscope Blade: Loredo Blade Size: 2 Cormack-Lehane Grade View: 2 Insertion Attempts: 1 Placement Verification: auscultation, end tidal CO2 and symmetrical chest wall movement Assessment: pharynx clear, atraumatic and dentition unchanged Secured at: 22 Measured From: lips Bite Block: soft Difficulty: 1 (somewhat) Difficulty Comment: anterior glottis Notes: Anterior view- one attempt total that was started by PICK UP ATTENDANT and intubation completed by anesthesiologist Obie Carrasco MD ANESTHESIA PX NOTE ORDERA BLES Final Result * BASIC METABOLIC PANEL (04/13/2024 3:03 PM RECORD LABEL INTERN) GLUCOSE 76 65 - 99 mg/dL [facility] Comment: Fasting reference interval UREA NITROGEN (BUN) 22 7 - 25 mg/dL [facility] CREATININE 0.94 0.60 - 1.00 mg/dL [facility] EGFR 65 > OR = 60 mL/min/1. 73m2 [facility] BUN/CREATININE RATIO SEE NOTE: 6 - 22 (calc) [facility] Comment: Not Reported: BUN and Creatinine are within reference range. SODIUM 140 135 - 146 mmol/L [facility] POTASSIUM 4.0 3.5 - 5.3 mmol/L [facility] CHLORIDE 101 98 - 110 mmol/L [facility] CARBON DIOXIDE 28 20 - 32 mmol/L [facility] ELECTROLYTE BALANCE 11 7 - 17 mmol/L (calc) [facility] CALCIUM 9.2 8.6 - 10.4 mg/dL [facility] Blood BLOOD SPECIMEN / Unknown 04/13/2024 3:03 PM RECORD LABEL INTERN 04/13/2024 3:04 PM RECORD LABEL INTERN us Ariel Stearns MD CHEMISTRY Final Result [facility] [address] [place] [address], [facility] [address] [place] [address] * MR SPINE LUMBAR WO (03/30/2024 8:11 AM CDT) Anatomical Region Laterality Modality Spine, LUMBAR SPINE Magnetic Res onance 03/30/2024 8:11 AM CDT Impressions 03/30/2024 3:23 PM CDT 1. Multilevel degenerative changes, as described. 2. Compared to most recent exam of 08/05/2023, there is a new large cranially migrating right central disc extrusion at L2-L3 compressing the traversing right L3 nerve roots and causing severe right lateral recess stenosis at that level. There is moderate bordering on moderate to severe overall central spinal canal stenosis at L2-L3. 3. Otherwise, no significant change in the degenerative findings in the lumbar spine, as detailed in the level by level fashion above. Narrative 03/30/2024 3:23 PM CDT For Patients: As a result of the Century Cures Act, medical imaging exams and procedure reports are released immediately into your electronic medical record. You may view this report before your referring provider. If you have questions, please contact your health care provider. EXAM: MR SPINE LUMBAR WO LOCATION: [facility] DATE: 03/30/2024 INDICATION: Spinal Stenosis Of Lumbosacral Region Lumbar Radiculopathy Spinal Cord Cysts. COMPARISON: MRI lumbar spine 08/05/2023 and 11/30/2022. TECHNIQUE: Routine Lumbar Spine MRI without IV contrast. FINDINGS: Nomenclature is based on 5 lumbar vertebral bodies. Multilevel shallow Schmorl's nodes/degenerative endplate irregularities are noted. Trace anterolisthesis of L2 on L3, unchanged. Sagittal alignment otherwise is within normal limits. Levoconvex lumbar curvature, better characterized on the prior study (which included coronal T2-weighted series). Mild scattered patchy Modic type I degenerative endplate signal changes at L2-L3 and L4-L5 primarily. Modic type II degenerative endplate signal changes at L3-L4. Bone marrow signal otherwise appears within normal limits. Diffuse intervertebral disc desiccation. Normal appearance of the distal spinal cord with the conus terminating at L1. The visualized paraspinous soft tissues and bony pelvis otherwise appear unremarkable. Segmental analysis: T11-T12: Imaged only in the sagittal plane. There appears to be a left central disc herniation (series 2 image 7). In retrospect, this was likely present on the previous MRI of 11/30/2022. This likely contributes to at least mild spinal canal stenosis. No obvious significant neural foraminal stenosis identified. T12-L1: Normal disc height. Shallow right central disc protrusion. Mild facet arthropathy. Changes of previous laminectomy, as before. No significant spinal canal or neural foraminal stenosis. Overall, no significant change. L1-L2: Moderate disc height loss. Symmetric disc bulge. Mild facet arthropathy. Mild right lateral recess narrowing. No central spinal canal stenosis. No significant neural foraminal stenosis. Overall, no significant change. L2-L3: Moderate to severe disc height loss appears progressed. There is a symmetric disc bulge with new large superimposed right central/lateral recess disc extrusion (series 5 image 22, series 2 image 10). There is moderate facet arthropathy and ligamentum flavum thickening, as before. The aforementioned disc extrusion compresses the traversing right L3 nerve roots. There is severe right lateral recess stenosis at the level of the L2 inferior endplate and the L2-L3 disc space. There is otherwise moderate bordering on moderate to severe central spinal canal stenosis. The right neural foramen is patent. Left neural foramen is mildly narrowed, as before. L3-L4: Severe disc height loss, unchanged. Disc bulge with posterior endplate osteophytic ridging, slightly eccentric to the right. Mild to moderate facet arthropathy. Mild to moderate right lateral recess stenosis and mild overall central spinal canal stenosis. Mild to moderate right and mild left neural foraminal stenosis. Overall, no change. L4-L5: Moderate to severe disc height loss. Disc bulge eccentric to the left with superimposed left central/lateral recess disc protrusion with marginal endplate osteophytes. There is mild to moderate bordering on moderate left lateral recess stenosis. Mild overall central spinal canal stenosis. There is up to moderate to severe left neural foraminal stenosis and mild to moderate right neural foraminal stenosis. Overall, no significant change L5-S1: Normal disc height. Shallow symmetric disc bulge. Severe left and mild right facet arthropathy. Mild left lateral recess stenosis. No central spinal canal stenosis. Mild to moderate left neural foraminal stenosis. The right neural foramen appears patent. Overall, no significant change. Procedure Note Matt Hansen MD - 03/30/2024 For Patients: As a result of the 21st Century Cures Act, medical imagingexams and procedure reports are released immediately into your electronicmedical record. You may view this report before your referring provider.If you have questions, please contact your health care provider. EXAM: MR SPINE LUMBAR WO LOCATION: [facility] DATE: 03/30/2024 INDICATION: Spinal Stenosis Of Lumbosacral Region Lumbar RadiculopathySpinal Cord Cysts. COMPARISON: MRI lumbar spine 08/05/2023 and 11/30/2022. TECHNIQUE: Routine Lumbar Spine MRI without IV contrast. FINDINGS: Nomenclature is based on 5 lumbar vertebral bodies. Multilevelshallow Schmorl's nodes/degenerative endplate irregularities are noted.Trace anterolisthesis of L2 on L3, unchanged. Sagittal alignment otherwiseis within normal limits. Levoconvex lumbar curvature, better characterizedon the prior study (which included coronal T2-weighted series). Mildscattered patchy Modic type I degenerative endplate signal changes atL2-L3 and L4-L5 primarily. Modic type II degenerative endplate signalchanges at L3-L4. Bone marrow signal otherwise appears within normallimits. Diffuse intervertebral disc desiccation. Normal appearance of thedistal spinal cord with the conus terminating at L1. The visualizedparaspinous soft tissues and bony pelvis otherwise appear unremarkable. Segmental analysis: T11-T12: Imaged only in the sagittal plane. There appears to be a leftcentral disc herniation (series 2 image 7). In retrospect, this was likelypresent on the previous MRI of 11/30/2022. This likely contributes to atleast mild spinal canal stenosis. No obvious significant neural foraminalstenosis identified. T12-L1: Normal disc height. Shallow right central disc protrusion. Mildfacet arthropathy. Changes of previous laminectomy, as before. Nosignificant spinal canal or neural foraminal stenosis. Overall, nosignificant change. L1-L2: Moderate disc height loss. Symmetric disc bulge. Mild facetarthropathy. Mild right lateral recess narrowing. No central spinal canalstenosis. No significant neural foraminal stenosis. Overall, nosignificant change. L2-L3: Moderate to severe disc height loss appears progressed. There is asymmetric disc bulge with new large superimposed right central/lateralrecess disc extrusion (series 5 image 22, series 2 image 10). There ismoderate facet arthropathy and ligamentum flavum thickening, as before.The aforementioned disc extrusion compresses the traversing right L3 nerveroots. There is severe right lateral recess stenosis at the level of theL2 inferior endplate and the L2-L3 disc space. There is otherwise moderatebordering on moderate to severe central spinal canal stenosis. The rightneural foramen is patent. Left neural foramen is mildly narrowed, asbefore. L3-L4: Severe disc height loss, unchanged. Disc bulge with posteriorendplate osteophytic ridging, slightly eccentric to the right. Mild tomoderate facet arthropathy. Mild to moderate right lateral recess stenosisand mild overall central spinal canal stenosis. Mild to moderate right andmild left neural foraminal stenosis. Overall, no change. L4-L5: Moderate to severe disc height loss. Disc bulge eccentric to theleft with superimposed left central/lateral recess disc protrusion withmarginal endplate osteophytes. There is mild to moderate bordering onmoderate left lateral recess stenosis. Mild overall central spinal canalstenosis. There is up to moderate to severe left neural foraminal stenosisand mild to moderate right neural foraminal stenosis. Overall, nosignificant change L5-S1: Normal disc height. Shallow symmetric disc bulge. Severe left andmild right facet arthropathy. Mild left lateral recess stenosis. Nocentral spinal canal stenosis. Mild to moderate left neural foraminalstenosis. The right neural foramen appears patent. Overall, no significantchange. IMPRESSION: 1. Multilevel degenerative changes, as described. 2. Compared to most recent exam of 08/05/2023, there is a new largecranially migrating right central disc extrusion at L2-L3 compressing thetraversing right L3 nerve roots and causing severe right lateral recessstenosis at that level. There is moderate bordering on moderate to severeoverall central spinal canal stenosis at L2-L3. 3. Otherwise, no significant change in the degenerative findings in thelumbar spine, as detailed in the level by level fashion above. us Ariel Stearns MD MR Final Result * XR MAMMO BILAT SCREENING (07/14/2023 10:13 AM RECORD LABEL INTERN) Anatomical Region Laterality Modality BREASTS, Breast Left, Breast Right Bilateral Mammography Impressions 07/15/2023 3:33 PM RECORD LABEL INTERN There is no radiographic evidence for malignancy. Recommend annual mammograms. MAMMOGRAM ASSESSMENT: ACR 1 Negative PATIENTS: You will also receive a letter with your examination results in an easy to read format. If you have questions about your results, please contact your referring provider. Narrative 07/15/2023 3:33 PM RECORD LABEL INTERN For Patients: As a result of the 21st Century Cures Act, medical imaging exams and procedure reports are released immediately into your electronic medical record. You may view this report before your referring provider. If you have questions, please contact your health care provider. XR MAMMO BILAT SCREENING [[id number]] CLINICAL HISTORY: This is an asymptomatic 68 y.o. patient. INDICATION FOR EXAM: Mammogram Screening. TECHNIQUE: CC & MLO views were obtained. This study was evaluated with the assistance of Computer-Aided Detection. COMPARISON FILM: Yes 11/18/20 [facility] 07/13/16 [facility] FINDINGS: The breasts are almost entirely fatty. There are no dominant masses, suspicious micro calcifications or areas of architectural distortion. us Ariel Stearns MD MAMMO Final Result * COLONOSCOPY (02/10/2023 10:35 AM CDT) 02/10/2023 10:3 5 AM CDT Narrative Transcriptions Santos Chu MD - 02/10/2023 12:02 PM CDT Patient Name: Tressa Huertas Procedure Date: 02/10/2023 Gender: Female Date of : 1955 Admit Type: Outpatient Procedure: Colonoscopy Proceduralist: Santos Chu MD , Zuleyma Winston (Nurse), Nery Alejandra (Nurse) Indications/Pre-Op Diagnosis: Clinically significant diarrhea ofunexplained origin, Fecal incontinence Medications: Fentanyl 100 micrograms IV, Midazolam 2 mgIV Procedure Description: The patient had risks, benefits and alternatives explained to andgave informed consent. The patient had a stable cardiopulmonary status and judged an adequate candidate for conscious sedation. The endoscope PCF-H190L [id number] was passed through the anus andadvanced to 8 cm into the ileum. The colonoscopy was performed without difficulty. The patient tolerated the procedure well. The quality ofthe bowel preparation was good. The terminal ileum, ileocecal valve, appendiceal orifice, and rectum were photographed. Complications: No immediate complications. Estimated Blood Loss & Specimen: Estimated blood loss: none. Specimen collected - Yes and sent to Laboratory Findings: Skin tags were found on perianal exam. The terminal ileum appeared normal. A 5 mm polyp was found in the proximal ascending colon. The polyp was sessile. The polyp was removed with a hot snare. Resection andretrieval were complete. A 4 mm polyp was found in the descending colon. The polyp wassessile. The polyp was removed with a hot snare. Resection and retrieval were complete. A 3 mm polyp was found in the rectum. The polyp was sessile. Thepolyp was removed with a cold snare. Resection and retrieval werecomplete. Scattered small and large-mouthed diverticula were found in theentire colon. There was evidence of a prior end-to-end colo-colonic anastomosis inthe recto-sigmoid colon. This was patent and was characterized by healthy appearing mucosa. The exam was otherwise without abnormality. Biopsies for histology were taken with a cold forceps from the entire colon for evaluation of microscopic colitis. Impressions/Post-Op Diagnosis: - Perianal skin tags found on perianal exam. - The examined portion of the ileum was normal. - One 5 mm polyp in the proximal ascending colon, removed with a hot snare. Resected and retrieved. - One 4 mm polyp in the descending colon, removed with a hot snare. Resected and retrieved. - One 3 mm polyp in the rectum, removed with a cold snare. Resectedand retrieved. - Diverticulosis in the entire examined colon. - Patent end-to-end colo-colonic anastomosis, characterized byhealthy appearing mucosa. - The examination was otherwise normal. - Biopsies were taken with a cold forceps from the entire colon for evaluation of microscopic colitis. Recommendation: - Patient has a contact number available for emergencies. The signsand symptoms of potential delayed complications were discussed with the patient. Return to normal activities tomorrow. Written discharge instructions were provided to the patient. - Resume previous diet. - Continue present medications. - Await pathology results. - Repeat colonoscopy is recommended. The colonoscopy date will be determined after pathology results from today's exam become available for review. Moderate Sedation: A time out was performed before the procedure. Moderate (conscious) sedation was administered by the endoscopy nurse and supervised bythe endoscopist. The following parameters were monitored: oxygensaturation, heart rate, blood pressure, EKG, CO2, respiratory rate, adequacy of pulmonary ventilation and reponse to care. Please refer to the patient's medical record flowsheets and nursing notes for moderate sedation details. Total physician intraservice time was 23 minutes. Santos Chu MD 02/10/2023 12:01:49 PM This report has been signed electronically. Note Initiated On: 02/10/2023 10:35 AM Procedure Code(s): --- Professional --- 25666, Colonoscopy, flexible; with removalof tumor(s), polyp(s), or other lesion(s) bysnare technique 37133, 59, Colonoscopy, flexible; withbiopsy, single or multiple Diagnosis Code(s): --- Professional --- D12.2, Benign neoplasm of ascending colon D12.4, Benign neoplasm of descending colon D12.8, Benign neoplasm of rectum Z98.0, Intestinal bypass and anastomosisstatus K64.4, Residual hemorrhoidal skin tags R19.7, Diarrhea, unspecified R15.9, Full incontinence of feces K57.30, Diverticulosis of large intestine without perforation or abscess withoutbleeding CPT copyright 2021 [employer]. All rights reserved. The codes documented in this report are preliminary and upon water supply engineer reviewmay be revised to meet current compliance requirements. Scope In: 11:23:25 AM Scope Withdrawal Time 0 hours 17 minutes 27 seconds Scope Out: 11:44:23 AM us Santos Chu MD PROCEDURE ORD Final Res ult * (ABNORMAL) LIPID PANEL (12/09/2020 12:14 PM CDT) CHOLESTEROL,TOTAL 178 100 - 199 mg/dL 12/09/2020 3:44 PM CDT [facility] TRIGLYCERIDES 178(H) <150 mg/dL 12/09/2020 3:44 PM CDT [facility] HDL CHOLESTEROL 38(L) >40 mg/dL 3:44 PM CDT [facility] NON-HDL CHOLESTEROL 140 <145 mg/dl 12/09/2020 3:44 PM CDT [facility] CHOL/HDL RATIO 4.68(H) <4.50 12/09/2020 3:44 PM CDT [facility] LDL CHOLESTEROL 104 <=130 mg/dL 12/09/2020 3:44 PM CDT [facility] VLDL CHOLESTEROL 36 mg/dL 12/10/19 3:44 PM CDT [facility] PROVIDER ORDERED STATUS RANDOM 12/09/2020 3:44 PM CDT [facility] Blood BLOOD SPECIMEN / Unknown Venipuncture / Unknown 12/09/2020 12:14 PM CDT 12/09/2020 12:14 PM CDT us Ritika Del Rio MD CHEMISTRY Final Resul t [facility] [address] [place] [address], [place] * (ABNORMAL) XR DXA BONE DENSITY 2 SITES AXIAL [98249.1] (11/18/2020 2:44 PM CDT) Anatomical Region Laterality Modality Spine, HIPS, HIPL, HIPR Other Impressions 11/19/2020 2:12 PM CDT Normal bone density. RECOMMENDATIONS: The National Osteoporosis Foundation recommends pharmacologic treatment for patients with T-scores of -2.5 or less, patients with prior history of fragility fractures, or patients with 10-year probability of greater than 3% at hips or greater than 20% of suffering major osteoporotic fractures. Recommend continued optimization of calcium and vitamin D intake through dietary means and/or supplementation and regular exercise. Repeat scan recommended in 3-5 years. Pina Samaniego PA-C [facility] 11/19/2020 Narrative 11/19/2020 2:12 PM CDT XR DXA Bone Mineral Density (BMD) EXAM LOCATION: [address] [address] PATIENT NAME: Tressa Huertas DATE OF : 1955 EXAM DATE: 11/18/2020 REQUESTING PROVIDER: Quang, Ritika Mann MD GENDER AT : female HEIGHT: 5' 9.13 (08/07/2020) WEIGHT: 201 lb 6.4 oz (11/11/2020) MENOPAUSAL STATUS: Postmenopausal RACE/ETHNICITY: White RISK FACTORS: White Race CURRENT MEDICATION FOR BONE LOSS: NONE INDICATION: Initial scan for screening COMPARISON DATE(S): none DXA scans are compared to prior studies for a patient only when the two (or more) studies were performed on the same scanner. It is not possible to compare data generated on one scanner to data from another because there are not standards in DXA equipment. This applies even if the two scanners are made by the same rn school. PROCEDURE: Dual-energy x-ray absorptiometry performed with routine technique. Reporting is completed in the form of a T-score. The T-score represents the standard deviation from peak bone mass based on young healthy adult. A Z-score is used for diagnosis in premenopausal women, and for men under the age of 50. FINDINGS: RESULT LUMBAR SPINE L1 - L2 BMD: 1.399 g/cm2 T-Score: + 1.9 Z-Score: + 2.6 RESULT FEMORAL NECK Right Total Femoral Neck BMD: 0.918 g/cm2 T-Score: - 0.9 Z-Score: + 0.1 RESULT TOTAL HIP Bilateral Total Hip BMD: 0.943 g/cm2 T-Score: - 0.5 Z-Score: + 0.2 WHO criteria: Normal: T-score at or above -1 SD Osteopenia: T-score between -1.1 and -2.4 SD Osteoporosis: T-score at or below -2.5 SD us Ritika Del Rio MD DEXA Final Resul t * ANTI HCV (02/20/2020 10:02 AM CDT) Pathologist [facility] HEPATITIS C ANTIBODY Non-React brayan Non-React brayan 02/20/2020 4:56 PM CDT [facility] Comment:Antibodies to HCV no t detected; does not exclude the possibility of exposure to HCV. Blood BLOOD SPECIMEN / Unknown Venipuncture / Unknown 02/20/2020 10:02 AM CDT 02/20/2020 10:02 AM CDT us Ritika Del Rio MD SEND OUTS Final Resul t [facility] [address] [place] [address], [place] from Last 3 Months or Most Recently Relevant to Health Maintenance Additional Health Concerns Infection Onset Date Last Indicated MRSA Clearance Comment:Hx MRSA 02/06/15 09/01/2023 09/01/[id number] [facility] [place] [address] MEDICARE PB ONLY [place] [address] MEDICARE PART B HB ONLY MEDICARE PART A HB ONLY [id number] [place] [address] MEDICARE PROVIDER BASED [id number] [place] [address] [facility] [employer] Advance Directives Documents on File Type Date Recorded 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 Healthcare Directive 08/31/2023 024 * Full Code (Latest Code Status on File) Date Activated Date Inactivated Comments 04/21/2024 6:01 AM 04/22/2024 6:23 PM Question Answer Comments Code Status Discussion: Per Existing Order * Full Code Date Activated Date Inactivated Comments 09/01/2023 10:27 AM 09/01/2023 3:38 PM Question Answer Comments Code Status Discussion: Per Existing Order * Full Code Date Activated Date Inactivated Comments 01/23/2015 2:01 PM 01/31/2015 4:26 PM * Full Code Date Activated Date Inactivated Comments 01/23/2015 5:35 AM 01/23/2015 2:01 PM * Full Code Date Activated Date Inactivated Comments 01/23/2015 1:35 AM 01/23/2015 5:35 AM Care Teams Retail Security Professional Relationship Specialty [place] [id number] [address] [facility] [address] P[facility] - General Family Practice 11/11/22
--- OUTSIDE RECORDS SUMMARY | 2024-06-19 23:30 | XMS_ITS | Clinical Summary ---
Author Organization [facility] Address [address] [place] [address] Care Team Providers Care Station Jailer Name Role Phone Unavailable Primary Care Provider Unavailabl e Source Comments [facility],non-owned Affiliates and Associated Physician Practices is amultiple site organization consisting of ambulatory clinics and hospital sitesin [place], [place], [place] and [place]. This disclosure is being madepursuant to the Care Everywhere program and may not contain all information available regarding this patient. Last updated 18.[facility] Allergies Active Allergy Reactions Criticality Noted Date Comments Morphine Itching 07/18/2019 Gabapentin Itching 07/18/2019 Medications * Be aware that medications may not be up to date on this document. Alwaysverify current medications with the patient. Medication Sig Dispensed Refills Start Date End Date Status cyclobenzaprine (FLEXERIL) 5 MG tablet Take 1-2 tablets by mouth 3 times daily as needed (Muscle spasms) 30 tablet 07/18/2019 Active Social History Tobacco Use Types Packs/Day Years Used Date Smoking Tobacco: Never Smokeless Tobacco: Never Sex and Gender Information Value Date Recorded Sex Assigned at Not on file Gender Identity Not on file Sexual Orientation Not on file Last Filed Vital Signs Vital Sign Reading Time Taken Comments Blood Pressure 124/69 07/18/2019 3:11 PM FILTER PLANT OPERATOR Pulse 94 07/18/2019 2:55 PM FILTER PLANT OPERATOR Temperature 36.7 C (98.1 F) 07/18/2019 2:55 PM FILTER PLANT OPERATOR Respiratory Rate 16 07/18/2019 2:55 PM FILTER PLANT OPERATOR Oxygen Saturation 99% 07/18/2019 2:55 PM FILTER PLANT OPERATOR Inhaled Oxygen Concentration - - Weight - - Height - - Body Mass Index - - Plan of Treatment Health Maintenance Due Date Last Done Comments BONE DENSITY TESTING 1953 COLOGUARD (AGES 45-75) - COLON CA SCREENING 1953 COLON MONITORING 1953 COLONOSCOPY - COLON CA SCREENING 1953 CT COLONOGRAPHY - COLON CA SCREENING 1953 Colorectal Cancer Screening 1953 FIT - COLON CA SCREENING 1953 FLEX SIG - COLON CA SCREENING 1953 LIPID TESTING 1953 MAMMOGRAM 1953 MEDICARE AWV 12 MONTHS 1953 HEPATITIS C SCREENING 04/16/1971 DTAP/TDAP/TD VACCINES (1 - Tdap) 1972 PNEUMOCOCCAL VACCINE 50+ (1 of 1 - PCV) 2003 ZOSTER VACCINE (1 of 2) 2003 COVID-19 VACCINE (1 - season) 2024 INFLUENZA VACCINE (#1) 2024 8, 05/04/2017, 06/03/2016, Additional history exists DEPRESSION SCREENING 05/31/2024 Respiratory Syncytial Virus (RSV) Vaccine Pt: or over 60 yrs (1 - 1-dose 75+ series) 2028 HEPATITIS B VACCINE Aged Out No longe r eligible based on patient's age to complete this topic HIB VACCINE Aged Out No longer eligi ble based on patient's age to complete this topic HPV VACCINE Aged Out No longer eligi ble based on patient's age to complete this topic MENINGOCOCCAL (Group B) VACCINE Aged Out No longer eligible based on patient's age to complete this topic MENINGOCOCCAL VACCINE Aged Out No rufina medardo eligible based on patient's age to complete this topic
--- OUTSIDE RECORDS SUMMARY | 2024-06-19 23:30 | XMS_ITS | Continuity of Care Document ---
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
--- OUTSIDE RECORDS SUMMARY | 2024-06-19 23:31 | XMS_ITS | Continuity of Care Document ---
Author Organization [facility] Address [address] [address] [place] [address] Phone Care Team Providers Care Ring Attacher Name Role Phone Francoise Baer MD Unavailable Unavailable Allergies, Adverse Reactions, Alerts Substance Reaction Status Criticality gabapentin Unknown Active No Information morphine Skin irritation Active No Informati on Medications Medication Instructions Dosage Effective Dates (start - stop) Status Comments Metrogel 1 % topical apply by topical route every day to the affected area(s) ; rub in gently and completely 0.00 - Active Sinus 12 Hour 120 mg tablet,extended release take 1 tablet by oral route every 12 hours as needed 120 MG - Active lisinopril 20 mg tablet take 1 tablet by oral route every day 20 MG - Active duloxetine 60 mg capsule,delayed release take 1 Tablet by Oral route every day 1 Tablet - Active pantoprazole 20 mg tablet,delayed release take 1 by Oral route every day 1 - Active levothyroxine 50 mcg capsule take 1 by Oral route for 1 day 1 - Active lovastatin 20 mg tablet take 1 tablet by oral route every day with the evening meal 20 MG - Active duloxetine 30 mg capsule,delayed release take 1 capsule by oral route every day 30 MG - No Longer Active pravastatin 20 mg tablet take 1 tablet b y ORAL route every day 20 MG - No Longer Active escitalopram 5 mg tablet take 1 tablet b y oral route every day 5 MG - No Longer Active MiralaxBisacodylMagCit Colon Prep Use as directed - No Longer Active Procedures Procedure Date Established Level 3 Telephone E&M II 11-20 Min KACI Ugi Endo; W/bx 1/mx Level Iv-surg Path Gross/micro Telephone E&M II 11-20 Min KACI Advance Directives Directive Yes / No Effective Date File Name No Information Encounters Encounter Description Practice Location Reason(s) For Visit Diagnoses Date Provider Providers Copied on Encounter Established Level 3 [facility], [address] [address], [facility] [place], [id number], [place] tel:[phone] [facility] GI Symptoms or Concerns (chief complaint) Gastroesophage al reflux disease, unspecified whether esophagitis presentGas bloat syndrome 1 Buffy Owusu. [address], [place], [place], [id number] , [place]. tel:[phone] Krystian Vega MD. tel:[phone] Provider: Referral Self, USE FOR SELF REFERRALS. [facility], [address] [address], [place], [id number], [place] tel:[phone] [facility] Hiatal herniaRetained food in stomachBenign fundic gland polyps of stomachAbdomin al distension (gaseous)Diaph ragmatic hernia without obstruction or gangrene 1 Buffy Owusu. [address], [place], [place], [id number] , [place]. tel:[phone] Krystian Vega MD. tel:[phone] ng Provider: Referral Self, USE FOR SELF REFERRALS. Telephone E&M II 11-20 Min KACI [facility] [place], [address] [address], [place], [id number], [place] tel:[phone] [facility] GI Symptoms or Concerns (chief complaint) Gas bloat syndromeGastro esophageal reflux disease, unspecified whether esophagitis presentGastric polyps Apr-0 1 Sriram Lopez. [address], [place], [address], [place]. tel:[phone] Krystian Vega MD. [phone] ng Provider: [place], [address] [place], [address]. [phone] [facility], [address] [address], [place], [id number], [place] tel:[phone] [facility] No Information 1 Dimitry ADAMS Gardner. [address], [place], [place], [id number] , [place]. tel:[phone] [facility], [address] [address], [place], [id number], [place] tel:[phone] [facility] No Information 3 Dottie Barker. [address], [place], [place], [id number] , [place]. tel:[phone] Referring Provider: Krystian Arora, [address] [place], [address]. [phone] Family History Family Member Type Diagnosis Age At Onset Father Problem (finding) diverticulitis of colon Daughter Problem (finding) diverticulitis of colon Daughter Problem (finding) Alive and well Mother Problem (finding) stroke Son Problem (finding) back Father Problem (finding) cancer of colon Father Problem (finding) heart bypass Sister Problem (finding) Alive and well Mother Problem (finding) Son Problem (finding) Alive and well Immunizations Vaccine Date Status Comments SARS-COV-2 (COVID-19) vaccin e, mRNA, spike protein, LNP, preservative free, 30 mcg/0.3mL dose administered Note: [facility] bi-direct ional interface ; Source: Other Registry SARS-COV-2 (COVID-19) vaccin e, mRNA, spike protein, LNP, preservative free, 30 mcg/0.3mL dose administered Note: [facility] bi-direct ional interface ; Source: Other Registry Pneumovax 23 administered Note: [facility] bi-d irectional interface ; Source: Other Registry influenza, seasonal vaccine, quadrivalent, adjuvanted, .5mL dose, preservative free administered Note: [facility] bi-di rectional interface ; Source: Other Registry Afluria Qd administered Note: [facility] bi-directional interface ; Source: Other Registry Afluria Qd administered Note: [facility] bi-directional interface ; Source: Other Registry Afluria Qd administered Note: [facility] bi-directional interface ; Source: Other Registry zoster vaccine, live administered Note: [facility] bi-directional interface ; Source: Other Registry Influenza, seasonal, injectable administe red Note: [facility] bi- directional interface ; Source: Other Registry tetanus toxoid, reduced diphtheria toxoid, and acellular pertussis vaccine, adsorbed administered Note: [facility] b i-directional interface ; Source: Other Registry Influenza, seasonal, injectable administe red Note: [facility] bi- directional interface ; Source: Other Registry Influenza, seasonal, injectable administe red Note: [facility] bi- directional interface ; Source: Other Registry Influenza, seasonal, injectable administe red Note: [facility] bi- directional interface ; Source: Other Registry Influenza, seasonal, injectable administe red Note: [facility] bi- directional interface ; Source: Other Registry Influenza, seasonal, injectable administe red Note: [facility] bi- directional interface ; Source: Other Registry Influenza, seasonal, injectable administe red Note: [facility] bi- directional interface ; Source: Other Registry Payers Payer name Insurance type Covered republican ID Authoriza tion(s) Medicare NGS [id number] [facility] [id number] Social History Type Description Quantity Date Captured Comments Alcohol Use Details Unknown Caffeine Use Details Unknown Tobacco Use Status No Information Smoking Status No Information Sex Female Chief Complaint And Reason For Visit From encounter dated '11/01/2020 10:30'. GI Symptoms or Concerns (chief complaint). Description: Patient is a 65-year-old [facility] gas and bloating This consult was done for her telephone during the COVID- 19 pandemic issues below were discussed and reviewed but no physical exam was performed the patient consented to a telephone visit and people present during the telephone visit included only the patient Patient is a 65-year-old woman with a history of gastroesophageal reflux in her most recent endoscopy done for symptoms of gas and bloating as well as reflux and was performed August 2020 at the time of endoscopy she was noted to have a small amount of food in the stomach small hiatal hernia and several benign fundic gland polyps biopsies of the esophagus were noted negative stomach was negative and duodenum was negative. We reviewed these results with the patient today Patient is very crabby today she admits because of the heat and was very short in our verbal interaction but she feels like her reflux is back under control with the Protonix she has not changed the medication she felt like the gastric polyps give her more symptoms despite our reassurance that these polyps are benign she does feel reassured that the polyps are not cancerous she continues to have gas and bloating on it is more intermittent she says it is not related to constipation not know if the gas and bloating is related to the reflux We discussed the retained food in her stomach and the possibility of a gastric delay in emptying but she again did not want to discuss this topic. In review of systems she is not having any dysphagia nausea or vomiting she is not having diarrhea or constipation she is unclear of any foods are causing her symptoms of gas or bloating again does not want to discuss dietary factors home she denies chewing gum she does not smoke. Tag assessment 1. Is gastroesophageal reflux patient has a small hiatal hernia and has long- term gastroesophageal reflux her symptoms seem fairly well controlled on the Protonix and she did not want to change medications she does not need routine upper endoscopy use of her symptoms are well controlled and she has no symptoms of dysphagia or odynophagia tag assessment 2. Is a gas and bloating the patient wishes to discuss this with her primary care physician we did discuss the possibility of delayed gastric emptying but patient did not want to order a gastric emptying study intact assessment 3. Is colon cancer screening patient reports she had a colonoscopy 1 year ago and she gets a full colonoscopy every 5 years I do not have those records home she will follow-up with her primary care physician. Thank you for asking us to participate in her care standard [facility] GI Reason For Referral Reason For Referral No Information Plan Of Treatment Date Type Action Status Referral Ordered: EGD Appointment date/timeframe: 09/17/2020 ordered History Of Present Illness Encounter Date Complaint History Of Prese nt Illness GI Symptoms or Concerns Patient is a 65-year-old woman [facility] for gastroesophageal reflux gas and bloating This consult was done for her telephone during the COVID- 19 pandemic issues below were discussed and reviewed but no physical exam was performed the patient consented to a telephone visit and people present during the telephone visit included only the patient Patient is a 65-year-old woman with a history of gastroesophageal reflux in her most recent endoscopy done for symptoms of gas and bloating as well as reflux and was performed August 2020 at the time of endoscopy she was noted to have a small amount of food in the stomach small hiatal hernia and several benign fundic gland polyps biopsies of the esophagus were noted negative stomach was negative and duodenum was negative. We reviewed these results with the patient today Patient is very crabby today she admits because of the heat and was very short in our verbal interaction but she feels like her re GI Symptoms or Concerns Tressa jeffery is a 65-year-old female with whom I had a telephone visit today. Tressa gave consent for this telephone visit. She was alone, in a private location during the entire conversation, and nobody else joined in.Ms. Huertas has been sent in by her primary provider, Dr. Ritika Del Rio, for further evaluation of her underlying gastroesophageal reflux disease as well as gastric polyps.Ms. Huertas states that she has had a longstanding history of gastroesophageal reflux disease, dating back many years. She has been on PPI therapy (pantoprazole currently), for years. She states that pantoprazole is the one medication that has really helped her up until recently.She states that while she was taking the pantoprazole over the past few years, she was asymptomatic. Over the past month or so, she has had a recurrence of symptoms, which is why she is here for further evaluation.Of note, Tressa seems to have extremely significant anxiety disorder, that is clearly play Functional Status Date Functional Assessmen t No Information Instructions Date Instruction Additional Infor layo 1. She will continue the pantoprazole at present dose.2. It is okay to use the yzwe-lnh-xavmyus antacids as discussed with her, though she needs to take them more frequently, she may need to consider increasing the dose of the pantoprazole to 1 pill twice a day as discussed with her.3. We will be scheduling her for an upper endoscopy as discussed with her.4. She will call or e-mail with questions or concerns and will follow up with her primary provider as scheduled. Related to Gas bloat syndrome Assessments Type Assessment Date assessment Gastroesophageal ref lux disease, unspecified whether esophagitis present assessment Gas bloat syndrome Patient Care Teams Name Effective Dates (start - stop) Status Members No Information
--- OUTSIDE RECORDS SUMMARY | 2024-06-19 23:31 | XMS_ITS | Referral Summary ---
Author Organization [facility] Address [address] [place] [address] Care Team Providers Care Plastic Welding Machine Operator Name Role Phone Unavailable Primary Care Provider Unavailabl e Source Comments [facility],non-owned Affiliates and Associated Physician Practices is amultiple site organization consisting of ambulatory clinics and hospital sitesin [place], [place], [place] and [place]. This disclosure is being madepursuant to the Care Everywhere program and may not contain all information available regarding this patient. Last updated 18.[facility] Allergies Active Allergy Reactions Criticality Noted Date [...] Comments Blood Pressure 124/69 07/18/2019 3:11 PM GAME ROOM ATTENDANT Pulse 94 07/18/2019 2:55 PM GAME ROOM ATTENDANT Temperature 36.7 C (98.1 F) 07/18/2019 2:55 PM GAME ROOM ATTENDANT Respiratory Rate 16 07/18/2019 2:55 PM GAME ROOM ATTENDANT Oxygen Saturation 99% 07/18/2019 2:55 PM GAME ROOM ATTENDANT Inhaled Oxygen Concentration - - Weight - - Height - - Body Mass Index - - Plan of Treatment Not on file
--- OUTSIDE RECORDS SUMMARY | 2024-06-19 23:31 | XMS_ITS | Patient Health Summary ---
Author Organization [facility] Address [address] [place] [address] Care Team Providers Care Computing Systems Mechanic Name Role Phone Unavailable Primary Care Provider Unavailabl e Note from [facility],non-owned Affiliates and Associated Physician Practices is amultiple site organization consisting of ambulatory clinics and hospital sitesin [place], [place], [place] and [place]. This disclosure is being madepursuant to the Care Everywhere program and may not contain all information available regarding this patient. Last updated 18.[facility] Allergies * Morphine(Itching) * Gabapentin(Itching) Medications * Be aware that medications may not be up to date on this document. Alwaysverify current medications with the patient. * cyclobenzaprine (FLEXERIL) 5 MG tablet(Started 07/18/2019) Take 1-2 tablets by mouth 3 times daily as needed (Muscle spasms) Social History Tobacco Use Types Packs/Day Years Used Date Smoking Tobacco: Never Smokeless Tobacco: Never Sex and Gender Information Value Date Recorded Sex Assigned at Not on file Gender Identity Not on file Sexual Orientation Not on file Last Filed Vital Signs Vital Sign Reading Time Taken Comments Blood Pressure 124/69 07/18/2019 3:11 PM RESEARCH HYDROLOGIST Pulse 94 07/18/2019 2:55 PM RESEARCH HYDROLOGIST Temperature 36.7 C (98.1 F) 07/18/2019 2:55 PM RESEARCH HYDROLOGIST Respiratory Rate 16 07/18/2019 2:55 PM RESEARCH HYDROLOGIST Oxygen Saturation 99% 07/18/2019 2:55 PM RESEARCH HYDROLOGIST Inhaled Oxygen Concentration - - Weight - - Height - - Body Mass Index - -
== END 2024-06-19 15:40 | disposition home or self-care (01) ==
PROVIDERS: Emergency Provider Emergency Medicine; PCP Family Medicine
DX: M79.605 Pain in left leg (principal)
CPT/HCPCS: 93971; 99283; 99284